=== PATIENT | male | born 1935 | race Caucasian/White ===

== ENCOUNTER 2020-05-01 10:39 | Inpatient (IN) | payer MEDICARE, OTHER ==
--- NOTE | 2020-05-01 12:00 | ER Document Report ---
ED Medical Screen (RME) - General Chief Complaint: Fall Injury Stated Complaint: LEG PAIN/FALL Time Seen by Provider: 05/01/20 11:49 Mode of Arrival: Wheelchair Information source: Patient, Relative Notes: Patient is a 84-year-old male comes emergency room brought in by his daughter for a sustained loss of balance and fall on Friday. Daughter states that he was backing up and lost his balance she saw him going to fall and was able to get to his side and was able to catch his head and his upper body prior to him hitting the cement so he did not hit his head or have loss of consciousness but when he landed he landed on his right elbow very hard in his right hip hard. Again the daughter denies any loss of consciousness he did not have any fainting spells because it was was a mechanical fall. Patient has a significant past medical history pertinent for the history of blood clots and currently taking Eliquis, she has a history of COPD, hypertension, arrhythmias. Patient is sched uled to see Dr. Quiles on May 16 as a new patient. He had just moved down here a couple weeks ago from [place]. There is a question of baseline dementia as well. Physical examination: Patient is a frail-appearing 84-year-old male no apparent distress on examination today. Cardiac: Regular rate and rhythm with no murmurs auscultated. Lungs: Bilateral breath sounds decreased throughout no rhonchi or rales heard on auscultation. Abdomen: Bowel sounds present all 4 quads nontender to palpate. Lower extremities: Examination of patient's area of complaint is his right hip upper thigh pelvic area. Examination shows mild tenderness to palpation in the sitting position in his wheelchair anteriorly in the groin area patient unable to lift his leg against gravity at all. Any motion with passive range of motion causes increased discomfort and pain. There does not appear to be any shortening of the leg in the sitting position or rotation of it compared to the left side. Patient has a good femoral pulse. Unable to undress patient to see if there is any ecchymosis or swelling noted at this time he will be seen by provider in the back for further evaluation. I have greeted and performed a rapid initial assessment of this patient. A comprehensive ED assessment and evaluation of the patient, analysis of test results and completion of the medical decision making process will be conducted by additional ED providers. Dictation of this chart was performed using voice recognition software; therefore, there may be some unintended grammatical errors. Also note patient is on Eliquis and I do not feel it necessary at this time to do a head CT since daughter is with him and states that he has no head trauma and she caught him on his way down. - Related Data Allergies/Adverse Reactions: No Known Allergies Allergy (Unverified 05/01/20 11:45) Physical Exam - Vital signs Vitals: Temp Pulse Resp BP Pulse Ox 98.7 F 74 16 129/69 H 100 05/01/20 10:46 05/01/20 10:46 05/01/20 10:46 05/01/20 10:46 05/01/20 10:46 Course - Vital Signs Vital signs: Temp Pulse Resp BP Pulse Ox 98.7 F 74 16 129/69 H 100 05/01/20 10:46 05/01/20 10:46 05/01/20 10:46 05/01/20 10:46 05/01/20 10:46
[2020-05-01 12:32] LABS: ABSOLUTE LYMPHOCYTES (AUTO) 0.6 10^3/uL (0.5-4.7); ABSOLUTE MONOCYTES (AUTO) 0.7 10^3/uL (0.1-1.4); ABSOLUTE NEUT (AUTO) 8.6 10^3/uL (1.7-8.2); BASOPHILS % (AUTO) 0.3 % (0-2); EOSINOPHILS % (AUTO) 0.1 % (0-6); HEMATOCRIT 42.6 % (37.9-51.0); HEMOGLOBIN 14.4 g/dL (13.5-17.0); MEAN CORPUSCULAR HEMOGLOBIN 30.9 pg (27.0-33.4); MEAN CORPUSCULAR HGB CONC 33.9 g/dL (32.0-36.0); MEAN CORPUSCULAR VOLUME 91 fl (80-97); MONOCYTES % (AUTO) 6.8 % (3-13); PLATELET COUNT 136 10^3/uL (150-450); RED BLOOD COUNT 4.68 10^6/uL (4.35-5.55); RED CELL DISTRIBUTION WIDTH 15.9 % (11.5-14.0); SEGMENTED NEUTROPHILS % (AUTO) 86.8 % (42-78); TOTAL CELLS COUNTED % (AUTO) 100 %; WHITE BLOOD COUNT 9.9 10^3/uL (4.0-10.5)
[2020-05-01 12:47] LABS: ALBUMIN 3.5 g/dL (3.5-5.0); ALKALINE PHOSPHATASE 104 U/L (38-126); ANION GAP 11 (5-19); ASPARTATE AMINO TRANSFERASE 127 U/L (17-59); BILIRUBIN,DIRECT 0.3 mg/dL (0.0-0.4); BILIRUBIN,TOTAL 1.2 mg/dL (0.2-1.3); BLOOD UREA NITROGEN 43 mg/dL (7-20); CALCIUM 8.5 mg/dL (8.4-10.2); CARBON DIOXIDE 22 mmol/L (22-30); CHLORIDE 102 mmol/L (98-107); GLUCOSE 150 mg/dL (75-110); POTASSIUM 4.7 mmol/L (3.6-5.0); TOTAL PROTEIN 7.1 g/dL (6.3-8.2)
--- NOTE | 2020-05-01 12:55 | RADIOLOGY REPORT (SQ) ---
EXAM DESCRIPTION: ELBOW RIGHT OVER 2 VIEWS IMAGES COMPLETED DATE/TIME: 05/01/2020 12:46 pm REASON FOR STUDY: fall COMPARISON: None. NUMBER OF VIEWS: Four views. TECHNIQUE: AP, lateral, and both oblique radiographic images acquired of the right elbow. LIMITATIONS: None. FINDINGS: MINERALIZATION: Normal. BONES: No acute fracture or dislocation. Prominent spur on the olecranon. Small osteophytes on the radial head and capitellum. No worrisome bone lesions. JOINT: No effusion. SOFT TISSUES: No soft tissue swelling. No foreign body. OTHER: No other significant finding. IMPRESSION: CHRONIC DEGENERATIVE CHANGES. NO RADIOGRAPHIC EVIDENCE OF ACUTE INJURY. TECHNICAL DOCUMENTATION: JOB ID: [id number] 2010 [employer]- All Rights Reserved Reading location - IP/workstation name: [email or web address]
--- NOTE | 2020-05-01 12:56 | RADIOLOGY REPORT (SQ) ---
EXAM DESCRIPTION: FEMUR RIGHT IMAGES COMPLETED DATE/TIME: 05/01/2020 12:46 pm REASON FOR STUDY: fall COMPARISON: None. NUMBER OF VIEWS: Two views. TECHNIQUE: Two radiographic images acquired of the right femur to include hip and knee in at least o ne projection. LIMITATIONS: None. FINDINGS: MINERALIZATION: Normal. BONES: No acute fracture. No worrisome bone lesions. Degenerative changes in the hip. SOFT TISSUES: No obvious swelling or foreign body. Faint chondrocalcinosis in the knee. OTHER: No other significant finding. IMPRESSION: CHRONIC DEGENERATIVE CHANGES. NO RADIOGRAPHIC EVIDENCE OF ACUTE INJURY. TECHNICAL DOCUMENTATION: JOB ID: [id number] 2010 [employer]- All Rights Reserved Reading location - IP/workstation name: [email or web address]
--- NOTE | 2020-05-01 12:57 | RADIOLOGY REPORT (SQ) ---
EXAM DESCRIPTION: HIP BILATERAL IMAGES COMPLETED DATE/TIME: 05/01/2020 12:46 pm REASON FOR STUDY: fall COMPARISON: None. NUMBER OF VIEWS: Two views TECHNIQUE: AP pelvis and additional frog-leg view of both hips. LIMITATIONS: None. FINDINGS: MINERALIZATION: Normal. HIPS: No acute fracture or dislocation. Mild joint space narrowing with small osteophytes. No worri some bone lesions. PELVIS AND SACRUM: No acute fracture or dislocation. No worrisome bone lesions. PUBIS AND ISCHIUM: No acute fracture. LOWER LUMBAR SPINE: No significant findings as visualized. SOFT TISSUES: No findings. OTHER: Bowel gas pattern overlying both hips, possibly due to inguinal hernias. IMPRESSION: MILD DEGENERATIVE CHANGES IN THE HIPS. NO ACUTE TRAUMATIC FINDINGS. POSSIBLE INGUINAL HERNIAS. TECHNICAL DOCUMENTATION: JOB ID: [id number] 2010 [email or web address]- All Rights Reserved Reading location - IP/workstation name: [email or web address]
--- NOTE | 2020-05-01 12:58 | RADIOLOGY REPORT (SQ) ---
EXAM DESCRIPTION: L SPINE WHOLE IMAGES COMPLETED DATE/TIME: 05/01/2020 12:46 pm REASON FOR STUDY: fall COMPARISON: None. NUMBER OF VIEWS: Five views including obliques. TECHNIQUE: AP, lateral, oblique, and sacral radiographic images acquired of the lumbar spine. LIMITATIONS: None. FINDINGS: MINERALIZATION: Normal. SEGMENTATION: Normal. No transitional anatomy. ALIGNMENT: Normal. VERTEBRAE: Maintained height. No fracture or worrisome bone lesion. DISCS: Disc space narrowing with small osteophytes. POSTERIOR ELEMENTS: Pedicles and facets are intact. No pars defect or posterior arch defects. HARDWARE: None in the spine. PARASPINAL SOFT TISSUES: Normal. PELVIS: Intact as visualized. No fractures or worrisome bone lesions. SI joints intact. OTHER: No other significant finding. IMPRESSION: DEGENERATIVE DISC DISEASE. NO ACUTE FINDINGS. TECHNICAL DOCUMENTATION: JOB ID: [id number] 2010 [employer]- All Rights Reserved Reading location - IP/workstation name: [email or web address]
[2020-05-01 16:30] LABS: APPEARANCE,URINE SLIGHTLY-CLOUDY; BILIRUBIN,URINE NEGATIVE (NEGATIVE); COLOR,URINE YELLOW; GLUCOSE, URINE NEGATIVE (NEGATIVE); KETONES,URINE NEGATIVE (NEGATIVE); LEUKOCYTE ESTERASE,URINE NEGATIVE (NEGATIVE); NITRITE,URINE NEGATIVE (NEGATIVE); PROTEIN,URINE 30 mg/dL (NEGATIVE)
--- NOTE | 2020-05-01 19:14 | ER Document Report ---
ED General - General Chief Complaint: Fall Injury Stated Complaint: LEG PAIN/FALL Time Seen by Provider: 05/01/20 11:49 Mode of Arrival: Wheelchair - HPI Notes: 84-year-old male presents with right hip pain. Patient had a witnessed fall on Friday evening. Patient's daughter states that he was getting out of a car, he was backing up while walking, lost his balance. Patient's daughter states that she witnessed him look like he was about to fall, so she was able to catch him, however he did land with pretty significant force to his right elbow and hip. No loss of consciousness, he did not hit his head. Patient was ambulatory Friday and Friday, however today complained of increasing pain and was no longer able to ambulate. Patient has recently moved here and he is going to establish with a primary care in May. He has a history of COPD, hypertension, hypothyroidism, arrhythmia. He is on Eliquis. Patient's daughter also states that over the past month or so she has noticed that he seems to sleep more and has had decreased appetite, will intermittently complain of dizziness. Patient states that pain is okay as long as he is laying in bed, will greatly increase if he tries to get up and walk. Patient also notes a history of hernias in his groin which have been there for years. - Related Data Allergies/Adverse Reactions: No Known Allergies Allergy (Unverified 05/01/20 11:45) Past Medical History - General Information source: Patient, Relative - Social History Smoking Status: Former Smoker Family History: Reviewed & Not Pertinent Patient has homicidal ideation: No Review of Systems - Review of Systems Constitutional: denies: Fever EENT: No symptoms reported Cardiovascular: denies: Chest pain Respiratory: denies: Short of breath Gastrointestinal: denies: Abdominal pain Genitourinary: No symptoms reported Male Genitourinary: No symptoms reported Musculoskeletal: See HPI Skin: Other - Bruising Hematologic/Lymphatic: Other - On anticoagulation Neurological/Psychological: denies: Lost consciousness Physical Exam - Vital signs Vitals: Temp Pulse Resp BP Pulse Ox 98.7 F 74 16 129/69 H 100 05/01/20 10:46 05/01/20 10:46 05/01/20 10:46 05/01/20 10:46 05/01/20 10:46 - General General appearance: Appears well, Alert In distress: None - HEENT Head: Normocephalic, Atraumatic Extraocular movements intact: Yes Pupils: PERRL Neck: Other - No midline tenderness - Respiratory Chest status: Nontender Breath sounds: Rhonchi - Basis - Cardiovascular Rhythm: Bradycardia Normal capillary refill: Yes - Abdominal Distension: No distension Tenderness: Nontender Notes: 2 large bilateral inguinal hernias, nontender - Back Back: Other - No midline tenderness - Extremities Notes: Tenderness to right anatomical hip, decreased range of motion. Leg lengths grossly symmetric. Ecchymosis to posterior buttocks. Full range of motion to right elbow, no tenderness - Neurological Neuro grossly intact: Yes Cognition: Normal Orientation: AAOx4 Notes: Face is symmetric and speech is clear, motor symmetric between upper extremities, there is some weakness to the right leg which patient reports is due to pain, sensation intact - Psychological Associated symptoms: Normal affect - Skin Skin Temperature: Warm Course - Re-evaluation Re-evalutation: 84-year-old male presents with right hip pain, had a fall from standing 2 days ago, sounds mechanical per daughter and patient's description. No loss consciousness, did not hit his head. Became nonambulatory today secondary to pain. On exam patient is alert and well-appearing, sinus bradycardia, otherwise hemodynamically stable. Abdomen is soft. Does have tenderness to the right anatomical hip with some ecchymosis, leg lengths grossly symmetric. There is some weakness of the right leg which is from pain. Patient is grossly neurologically intact. Imaging done through triage was negative for fracture, however given his age and arthritis, will obtain CT to fully assess. Given the elevation of his LFTs, will do a CT abdomen to rule out liver lack. No reports of head trauma, however given that he is on Eliquis will obtain CT head to rule out bleed, will also see if there is any evidence of a subacute stroke. 05/01/20 22:48 CT has resulted. Patient has nondisplaced fracture of right acetabulum, inferior and superior rami. Discussed with Dr. Arriaga. Will have patient admitted to medicine service for pain control and for therapy to see, orthopedic team will see in the morning 05/01/20 22:[address] Gtz for admission - Vital Signs Vital signs: Temp Pulse Resp BP Pulse Ox 98.0 F 59 L 18 142/83 H 93 05/02/20 01:58 05/02/20 02:18 05/02/20 01:58 05/02/20 01:58 05/02/20 01:58 - Laboratory Results Result Diagrams: 05/01/20 12:09 05/01/20 12:09 Laboratory Results Interpreted: 05/01/20 05/01/20 05/01/20 12:09 12:09 12:09 RDW 15.9 H Plt Count 136 L Lymph % (Auto) 6.0 L Absolute Neuts (auto) 8.6 H Seg Neutrophils % 86.8 H Sodium 134.6 L BUN 43 H Creatinine 1.61 H Est GFR ( Amer) 50 L Est GFR (MDRD) Non-Af 41 L Glucose 150 H AST 127 H ALT 153 H Free T4 3.11 H Urine Protein Urine Urobilinogen 05/01/20 16:04 RDW Plt Count Lymph % (Auto) Absolute Neuts (auto) Seg Neutrophils % Sodium BUN Creatinine Est GFR ( Amer) Est GFR (MDRD) Non-Af Glucose AST ALT Free T4 Urine Protein 30 H Urine Urobilinogen 4.0 H Critical Laboratory Results Reviewed: No Critical Results - Radiology Results Critical Radiology Results Reviewed: No Critical Results - EKG Interpretation by Me Additional EKG results interpreted by me: EKG is interpreted by me. Sinus bradycardia, rate 55. RBBB. QTc within normal limits. No ST segment elevation. Nonspecific ST changes. Discharge - Discharge Clinical Impression: Right acetabular fracture Qualifiers: Encounter type: initial encounter Sublocation of acetabulum: unspecified portion of acetabulum Fracture type: closed Fracture alignment: nondisplaced Qualified Code(s): S32.401A - Unspecified fracture of right acetabulum, initial encounter for closed fracture Fracture of superior pubic ramus Qualifiers: Encounter type: initial encounter Fracture type: closed Laterality: right Qualified Code(s): S32.511A - Fracture of superior rim of right pubis, initial encounter for closed fracture Fracture of inferior pubic ramus Qualifiers: Encounter type: initial encounter Fracture type: closed Laterality: right Qualified Code(s): S32.591A - Other specified fracture of right pubis, initial encounter for closed fracture Disposition: ADMITTED INPATIENT Admitting Provider: Ulisses (Hospitalist) Unit Admitted: Medical Floor
[2020-05-01] MEDS ORDERED: HYDROCODONE/ACETAMINOPHEN 5-325 MG TABLET PO ONE (19:34)
[2020-05-01 20:38] LABS: FREE T4 (FREE THYROXINE) 3.11 ng/dL (0.78-2.19)
[2020-05-01 20:52] LABS: THYROID STIMULATING HORMONE 2.56 uIU/mL (0.47-4.68)
--- NOTE | 2020-05-01 21:57 | RADIOLOGY REPORT (SQ) ---
EXAM DESCRIPTION: CT HEAD WITHOUT IV CONTRAST COMPLETED DATE/TME: 05/01/2020 21:10 CLINICAL HISTORY: 84 years, Male, fall on thinners, R leg weakness COMPARISON: None. TECHNIQUE: Axial images without IV contrast. Sagittal coronal reconstruction. Images stored on PACS. All CT scanners at this facility use dose modulation, iterative reconstruction, and/or weight based dosing when appropriate to reduce radiation dose to as low as reasonably achievable (ALARA). FINDINGS: [id number] central and cortical atrophy. Vascular calcifications. No obvious acute intra-axial abnormalities. Artifact associated with the lower brainstem. There is mild local prominence of the extra-axial space in the left frontal region. Series 2 images 24-26. The finding is low density suggestive. There is questionable subtle skull fracture versus artifact. Seen on one slice Series 3 image 22. There is bilateral frontal sinus mucosal thickening right greater than left. Paranasal sinuses are otherwise unremarkable. Mastoid air cells are unremarkable. IMPRESSION: 1. No obvious acute intra-axial abnormalities. 2. Bilateral frontal sinus disease. 3. Very subtle left frontal extra-axial focal fluid and very questionable, seen on only one slice left frontal bone fracture. Both findings may be artifact. Recommend short term follow-up in several hours or as clinically indicated.
--- NOTE | 2020-05-01 22:15 | RADIOLOGY REPORT (SQ) ---
EXAM DESCRIPTION: CT ABDOMEN PELVIS WITH IV CONTRAST COMPLETED DATE/TME: 05/01/2020 21:11 CLINICAL HISTORY: 84 years, Male, fall, eval for liver lac and R hip fracture COMPARISON: Bilateral hip series from today. TECHNIQUE: 93 mCi of Omnipaque 350. Sagittal coronal reconstruction. Images stored on PACS. All CT scanners at this facility use dose modulation, iterative reconstruction, and/or weight based dosing when appropriate to reduce radiation dose to as low as reasonably achievable (ALARA). FINDINGS: [id number] cardiomegaly mainly dilatation of the right and left atria. Nonspecific nodular opacities in the lung bases acute versus chronic. Motion artifact. Viral pneumonia is not excluded. Liver, spleen, pancreas, biliary system, adrenal glands, and aortic regions are unremarkable. Kidneys without acute findings. Single renal cyst age side. Moderate atherosclerotic aorta without suspicious dilatation narrowing or dissection. Suspected narrowing at the origin of the celiac and superior mesenteric arteries as well as both renal arteries. Stomach contracted. Question mild gastritis in the antrum. Small bowel loops are unremarkable. Dilated colon. No suspicious peritoneal abnormality. Bones are osteoporotic. No suspicious acute fracture dislocation. CT of the pelvis demonstrates diffuse atherosclerotic disease. Greater narrowing of both common femoral arteries more on the right. Large bilateral inguinal hernias. Herniation of sigmoid colon the left. Herniation of small bowel loops in the right. Urinary bladder mildly distended. Significantly coarse prostatic stones. No significant prostatic enlargement. There is a right anterior acetabular fracture with mild extension to the superior pubic ramus. There is a separate right inferior pubic ramus fracture. There is mild hematoma/thickening of the right obturator internus muscle. IMPRESSION: 1. Acute right anterior acetabular fracture with involvement of the right superior and inferior pubic rami. No significant displacement. Mild associated soft tissue thickening. 2. Bilateral inguinal hernia. Herniation of small bowel in the right and sigmoid colon the left. There is colonic dilatation possibly related to the left inguinal hernia. 3. Diffuse atherosclerotic disease. 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 Greater stenosis of both common femoral arteries greater on the right. 4. Cardiomegaly mainly dilatation of the right and left atria. Bibasilar mildly nodular infiltrates greater on the right acute versus chronic. Viral pneumonia not excluded.
[2020-05-01] MEDS ORDERED: RINGERS SOLUTION,LACTATED 500 ML IV ONE (22:58)
[2020-05-01] MEDS ORDERED: ONDANSETRON 4 MG TAB.RAPDIS PO PRN (23:55)
[2020-05-01] MEDS ORDERED: ONDANSETRON HCL INJ/PF 4 MG/2 ML SDV IV PRN (23:55)
[2020-05-01] MEDS ORDERED: PROMETHAZINE HCL INJ 25 MG/1 ML VIAL IV PRN (23:55)
[2020-05-02] MEDS: FAMOTIDINE 20 MG TABLET PO SCH ×3 (00:54→21:42)
[2020-05-02] MEDS: DEXTROSE 5%-1/2 NORMAL SALINE 1,000 ML IV PRN ×2 (00:57→09:37)
[2020-05-02] MEDS: OXYCODONE-ACETAMINOPHEN 5-325 MG TABLET PO PRN ×2 (02:41→19:02)
[2020-05-02] MEDS ORDERED: LABETALOL HCL INJ 20 MG/4 ML DISP.SYRIN IV PRN (03:57)
--- NOTE | 2020-05-02 04:05 | PDOC H&P ---
History of Present Illness Admission Date/PCP: 05/01/20 23:09 CANDIS HER DO History of Present Illness: PAT RICHARD is a 84 year old male Past medical history of atrial fibrillation, hyperlipidemia, hypertension, nonoxygen dependent COPD, who recently moved to [place] from [place]. Patient is brought to ED by EMS after a fall. Patient is accompanied by his daughter who is also the source of history. As per daughter today when patient was trying to get out of the car, he lost his balance and fell to the floor landing on his right hip, before hitting his head to the floor patient's daughter was able to catch him. Patient is stating that before falling down patient felt lightheaded and lost his balance, patient denying any chest pain or palpitation prior to fall, or syncope after a fall. As per family patient has been complaining of dizziness for the last couple of w eeks and also noted to have low appetite. Patient does have history of atrial fibrillation but denies any history of CAD, seizure disorder, CVA, prior falls. Patient is stating that he is keeping hydrated but as per daughter who is present in the room is saying that they have noticed him to have low appetite and been sleeping a lot lately. Patient is complaining of right hip pain, sharp, 5/5 on severity scale, worse with movement, and better with staying still, he denies any fever, shortness of breath, chills, chest pain, palpitation, nausea, vomiting, diarrhea, constipation or any urinary symptoms. In ED a stat head CT was negative for any acute abnormalities, hip and femur x- rays did not show any acute abnormalities but CT abdomen and pelvis confirmed acute right anterior acetabular fracture with involvement of the right superior and inferior pubic rami. Orthopedic surgery was consulted and no acute intervention was recommended at this point and recommendation was for patient to be admitted and will be evaluated by orthopedic surgery tomorrow. Past Medical History Psychiatric Medical History: Denies: Depression Social History Smoking Status: Former Smoker Family History Family History: Reviewed & Not Pertinent Parental Family History Reviewed: Yes Children Family History Reviewed: Yes Sibling(s) Family History Reviewed.: Yes Medication/Allergy Allergies/Adverse Reactions: No Known Allergies Allergy (Unverified 05/01/20 11:45) Review of Systems Review of Systems: as per hpi Physical Exam Vital Signs: Temp Pulse Resp BP Pulse Ox 98.0 F 59 L 18 142/83 H 93 05/02/20 01:58 05/02/20 02:18 05/02/20 01:58 05/02/20 01:58 05/02/20 01:58 Intake & Output 04/30/20 05/01/20 05/02/20 06:59 06:59 06:59 Intake Total 620 Balance 620 Weight 67.5 kg General appearance: PRESENT: no acute distress, well-developed, well-nourished Head exam: PRESENT: atraumatic, normocephalic Neck exam: ABSENT: carotid bruit, JVD, lymphadenopathy, thyromegaly Respiratory exam: PRESENT: clear to auscultation maddie. ABSENT: rales, rhonchi, wheezes Cardiovascular exam: PRESENT: irregular rhythm. ABSENT: diastolic murmur, rubs, systolic murmur Pulses: PRESENT: normal femoral pulses, normal dorsalis pedis pul, +2 pedal pulses bilateral GI/Abdominal exam: PRESENT: normal bowel sounds, soft. ABSENT: distended, guarding, mass, organolmegaly, rebound, tenderness Extremities exam: PRESENT: full ROM. ABSENT: calf tenderness, clubbing, pedal edema Musculoskeletal exam: PRESENT: full ROM - Right hip range of motion limited by pain. Right lower extremity neurovascularly intact., tenderness - Right hip, Neurological exam: PRESENT: alert, awake, oriented to person, oriented to place, oriented to time, oriented to situation, CN II-XII grossly intact. ABSENT: motor sensory deficit Results Laboratory Results: 05/01/20 12:09 05/01/20 12:09 05/01/20 05/01/20 05/01/20 12:09 12:09 12:09 WBC 9.9 RBC 4.68 Hgb 14.4 Hct 42.6 MCV 91 MCH 30.9 MCHC 33.9 RDW 15.9 H Plt Count 136 L Seg Neutrophils % 86.8 H Sodium 134.6 L Potassium 4.7 Chloride 102 Carbon Dioxide 22 Anion Gap 11 BUN 43 H Creatinine 1.61 H Est GFR ( Amer) 50 L Glucose 150 H Calcium 8.5 Total Bilirubin 1.2 AST 127 H Alkaline Phosphatase 104 Total Protein 7.1 Albumin 3.5 TSH 2.56 Free T4 3.11 H Urine Color Urine Appearance Urine pH Ur Specific [place] Urine Protein Urine Glucose (UA) Urine Ketones Urine Blood Urine Nitrite Ur Leukocyte Esterase Urine WBC (Auto) Urine RBC (Auto) 05/01/20 16:04 WBC RBC Hgb Hct MCV MCH MCHC RDW Plt Count Seg Neutrophils % Sodium Potassium Chloride Carbon Dioxide Anion Gap BUN Creatinine Est GFR ( Amer) Glucose Calcium Total Bilirubin AST Alkaline Phosphatase Total Protein Albumin TSH Free T4 Urine Color YELLOW Urine Appearance SLIGHTLY-CLOUDY Urine pH 5.0 Ur Specific [place] 1.020 Urine Protein 30 H Urine Glucose (UA) NEGATIVE Urine Ketones NEGATIVE Urine Blood NEGATIVE Urine Nitrite NEGATIVE Ur Leukocyte Esterase NEGATIVE Urine WBC (Auto) 3 Urine RBC (Auto) 1 Impressions: Elbow X-Ray 05/01/20 11:53 IMPRESSION: CHRONIC DEGENERATIVE CHANGES. NO RADIOGRAPHIC EVIDENCE OF ACUTE INJURY. Hip X-Ray 05/01/20 11:53 IMPRESSION: MILD DEGENERATIVE CHANGES IN THE HIPS. NO ACUTE TRAUMATIC FINDINGS. POSSIBLE INGUINAL HERNIAS. Femur X-Ray 05/01/20 11:54 IMPRESSION: CHRONIC DEGENERATIVE CHANGES. NO RADIOGRAPHIC EVIDENCE OF ACUTE INJURY. Lumbar Spine X-Ray 05/01/20 11:54 IMPRESSION: DEGENERATIVE DISC DISEASE. NO ACUTE FINDINGS. Head CT 05/01/20 19:32 IMPRESSION: 1. No obvious acute intra-axial abnormalities. 2. Bilateral frontal sinus disease. 3. Very subtle left frontal extra-axial focal fluid and very questionable, seen on only one slice left frontal bone fracture. Both findings may be artifact. Recommend short term follow-up in several hours or as clinically indicated. Abdomen/Pelvis CT 05/01/20 19:33 IMPRESSION: 1. Acute right anterior acetabular fracture with involvement of the right superior and inferior pubic rami. No significant displacement. Mild associated soft tissue thickening. 2. Bilateral inguinal hernia. Herniation of small bowel in the right and sigmoid colon the left. There is colonic dilatation possibly related to the left inguinal hernia. 3. Diffuse atherosclerotic disease. 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 Greater stenosis of both common femoral arteries greater on the right. 4. Cardiomegaly mainly dilatation of the right and left atria. Bibasilar mildly nodular infiltrates greater on the right acute versus chronic. Viral pneumonia not excluded. Assessment and Plan - Diagnosis (1) Hip fracture, right Qualifiers: Encounter type: initial encounter Is this a current diagnosis for this admission?: Yes Plan: Nondisplaced fracture of right acetabulum, inferior and superior rami. Right lower extremity neurovascularly intact. Physical examination is limited due to pain. Orthopedic surgery has been consulted, no acute intervention indicated, pending evaluation. Continue supportive measures, implement fall precautions. Orthopedic surgery and physical therapy consulted. (2) Atrial fibrillation Qualifiers: Atrial fibrillation type: permanent Qualified Code(s): I48.21 - Permanent atrial fibrillation Is this a current diagnosis for this admission?: Yes Plan: History of chronic persistent atrial fibrillation,. Rate controlled and anticoagulated. Resume amiodarone and beta-blockers. Hold Eliquis in anticipation for possible orthopedic surgery. As per family patient's dosage was decreased from 5 mg p.o. twice daily to 2.5 mg p.o. twice daily but they could not provide a reason why. Given history of dizziness and recent fall chronic anticoagulation needs to be addressed with patient and family and cardiology. (3) Dizziness Is this a current diagnosis for this admission?: Yes Plan: CT head negative for any acute abnormalities. No orthostatic vitals on presentation. Patient and family is stating for the last several weeks patient is complaining of dizziness. Patient is stating that he gets lightheaded when he tries to stand up from a sitting position. Given recent NITZA and report of anorexia it is possible that patient is simply dehydrated. Patient is also on antihypertensive medication which may also lower his pressure even more. Patient and family counseled on importance of keeping hydrated and patient was advised to not get up too abruptly from a sitting position. Monitor vitals, monitor volume status, adjust antihypertensive medications if needed. Implement fall precautions. Physical therapy consulted. (4) NITZA (acute kidney injury) Is this a current diagnosis for this admission?: Yes Plan: Most likely prerenal due to dehydration. Creatinine 1.61 on admission. No previous labs available. Patient and family denies any history of CKD. Cautious volume resuscitation guided by volume status. Monitor electrolytes and volume status. Obtain renal ultrasound and consult nephrology if no improvement. Avoid nephrotoxic meds. (5) BPH (benign prostatic hyperplasia) Qualifiers: Lower urinary tract symptom presence: symptoms absent Qualified Code(s): N40.0 - Benign prostatic hyperplasia without lower urinary tract symptoms Is this a current diagnosis for this admission?: Yes Plan: Resume home meds. Outpatient PCP and urology follow-up. (6) Hyperlipemia Is this a current diagnosis for this admission?: Yes Plan: Resume home meds. Obtain lipid panel. (7) Hypertension Is this a current diagnosis for this admission?: Yes Plan: Resume home meds. Adjust meds as needed. (8) COPD (chronic obstructive pulmonary disease) Qualifiers: COPD type: emphysema Emphysema type: centrilobular Qualified Code(s): J43.2 - Centrilobular emphysema Is this a current diagnosis for this admission?: Yes Plan: History of nonoxygen COPD. Noted to be hypoxic on room air. Benign chest examination. Does not appear to be acutely exacerbated. Resume home meds. As needed DuoNebs. Supplemental oxygen. Evaluate for home oxygen need. (9) Fall Qualifiers: Encounter type: initial encounter Qualified Code(s): W19.XXXA - Unspecified fall, initial encounter Is this a current diagnosis for this admission?: Yes Plan: As per problem #1. - Time Time Spent with patient: 35 or more minutes Anticipated Discharge Disposition: Home with Home Health Anticipated Discharge Timeframe: within 72 hours
[2020-05-02] MEDS: HEPARIN SOD (PORCINE) 5,000 UNIT/ML 1 ML VIAL SUBCUT SCH ×2 (05:24→17:05)
--- NOTE | 2020-05-02 08:41 | PDOC CONSULTATION ---
Consultation Consult Date: 05/02/20 Provider Consulted: EDELMIRA BLACKWELL History of Present Illness Admission Date/PCP: 05/01/20 23:09 CANDIS HER DO Patient complains of: Right hip pain History of Present Illness: PAT RICHARD is a 84 year old male who sustained a fall from a standing height onto his right hip 04/29/2020. After which patient was unable to weight-bear and was transferred with a wheelchair. He has subsequently presented to the emergency room on 05/01/2020 with persistent pain and inability to weight-bear. Patient states pain is worse with any attempted motion. Desc ribes as sharp stabbing pain. Denies numbness. Pain currently controlled with narcotics. Pain 2/5. Past Medical History Psychiatric Medical History: Denies: Depression Social History Smoking Status: Former Smoker Family History Family History: Reviewed & Not Pertinent Parental Family History Reviewed: No Children Family History Reviewed: No Sibling(s) Family History Reviewed.: No Medication/Allergy Allergies/Adverse Reactions: No Known Allergies Allergy (Unverified 05/01/20 11:45) Physical Exam Vital Signs: Temp Pulse Resp BP Pulse Ox 98.0 F 53 L 18 142/83 H 93 05/02/20 01:58 05/02/20 07:00 05/02/20 01:58 05/02/20 01:58 05/02/20 01:58 Intake & Output 05/01/20 05/02/20 05/03/20 06:59 06:59 06:59 Intake Total 620 Output Total 600 Balance 20 Weight 67.5 kg General appearance: PRESENT: no acute distress, well-developed, well-nourished Head exam: PRESENT: atraumatic, normocephalic Eye exam: PRESENT: conjunctiva pink, EOMI, PERRLA. ABSENT: scleral icterus Ear exam: PRESENT: normal external ear exam Mouth exam: PRESENT: moist, tongue midline Neck exam: PRESENT: full ROM. ABSENT: carotid bruit, JVD, lymphadenopathy, thyromegaly Respiratory exam: PRESENT: wheezes Cardiovascular exam: PRESENT: RRR. ABSENT: diastolic murmur, rubs, systolic murmur Pulses: PRESENT: normal dorsalis pedis pul, +2 pedal pulses bilateral Vascular exam: PRESENT: normal capillary refill GI/Abdominal exam: PRESENT: normal bowel sounds, soft. ABSENT: distended, guarding, mass, organolmegaly, rebound, tenderness Rectal exam: PRESENT: deferred Musculoskeletal exam: PRESENT: other - Right hip: Positive logroll. Unable to straight leg raise moderate thigh swelling without change, intact plantarflexion/dorsiflexion. No sensory deficits. No calf tenderness. Neurological exam: PRESENT: alert, awake, oriented to person, oriented to place, oriented to time, oriented to situation, CN II-XII grossly intact. ABSENT: motor sensory deficit Psychiatric exam: PRESENT: appropriate affect, normal mood. ABSENT: homicidal ideation, suicidal ideation Skin exam: PRESENT: dry, intact, warm. ABSENT: cyanosis, rash Results Laboratory Results: 05/01/20 12:05/01/20 12:05/01/20 05/01/20 05/01/20 12: 12: 12:09 WBC 9.9 RBC 4.68 Hgb 14.4 Hct 42.6 MCV 91 MCH 30.9 MCHC 33.9 RDW 15.9 H Plt Count 136 L Seg Neutrophils % 86.8 H Sodium 134.6 L Potassium 4.7 Chloride 102 Carbon Dioxide 22 Anion Gap 11 BUN 43 H Creatinine 1.61 H Est GFR ( Amer) 50 L Glucose 150 H Calcium 8.5 Total Bilirubin 1.2 AST 127 H Alkaline Phosphatase 104 Total Protein 7.1 Albumin 3.5 TSH 2.56 Free T4 3.11 H Urine Color Urine Appearance Urine pH Ur Specific [place] Urine Protein Urine Glucose (UA) Urine Ketones Urine Blood Urine Nitrite Ur Leukocyte Esterase Urine WBC (Auto) Urine RBC (Auto) 05/01/20 16:04 WBC RBC Hgb Hct MCV MCH MCHC RDW Plt Count Seg Neutrophils % Sodium Potassium Chloride Carbon Dioxide Anion Gap BUN Creatinine Est GFR ( Amer) Glucose Calcium Total Bilirubin AST Alkaline Phosphatase Total Protein Albumin TSH Free T4 Urine Color YELLOW Urine Appearance SLIGHTLY-CLOUDY Urine pH 5.0 Ur Specific [place] 1.020 Urine Protein 30 H Urine Glucose (UA) NEGATIVE Urine Ketones NEGATIVE Urine Blood NEGATIVE Urine Nitrite NEGATIVE Ur Leukocyte Esterase NEGATIVE Urine WBC (Auto) 3 Urine RBC (Auto) 1 Impressions: Elbow X-Ray 05/01/20 11:53 IMPRESSION: CHRONIC DEGENERATIVE CHANGES. NO RADIOGRAPHIC EVIDENCE OF ACUTE IN JURY. Hip X-Ray 05/01/20 11:53 IMPRESSION: MILD DEGENERATIVE CHANGES IN THE HIPS. NO ACUTE TRAUMATIC FINDINGS. POSSIBLE INGUINAL HERNIAS. Femur X-Ray 05/01/20 11:54 IMPRESSION: CHRONIC DEGENERATIVE CHANGES. NO RADIOGRAPHIC EVIDENCE OF ACUTE INJURY. Lumbar Spine X-Ray 05/01/20 11:54 IMPRESSION: DEGENERATIVE DISC DISEASE. NO ACUTE FINDINGS. Head CT 05/01/20 19:32 IMPRESSION: 1. No obvious acute intra-axial abnormalities. 2. Bilateral frontal sinus disease. 3. Very subtle left frontal extra-axial focal fluid and very questionable, seen on only one slice left frontal bone fracture. Both findings may be artifact. Recommend short term follow-up in several hours or as clinically indicated. Abdomen/Pelvis CT 05/01/20 19:33 IMPRESSION: 1. Acute right anterior acetabular fracture with involvement of the right superior and inferior pubic rami. No significant displacement. Mild associated soft tissue thickening. 2. Bilateral inguinal hernia. Herniation of small bowel in the right and sigmoid colon the left. There is colonic dilatation possibly related to the left inguinal hernia. 3. Diffuse atherosclerotic disease. 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 Greater stenosis of both common femoral arteries greater on the right. 4. Cardiomegaly mainly dilatation of the right and left atria. Bibasilar mildly nodular infiltrates greater on the right acute versus chronic. Viral pneumonia not excluded. Status: Image reviewed by me - I have reviewed patient's CT scan and radiographs consistent with nondisplaced superior dome acetabular fracture no evidence of intra-articular incongruity. Assessment & Plan - Diagnosis (1) Fracture of inferior pubic ramus Qualifiers: Encounter type: initial encounter Fracture type: closed Laterality: right Qualified Code(s): S32.591A - Other specified fracture of right pubis, initial encounter for closed fracture Plan: Patient sustained nondisplaced acetabular fracture with involvement of the inferior pubic rami. Currently there is no evidence of displacement and given patient's comorbidities he would not be a great candidate for surgery but at this point given the nondisplaced nature do not feel operative intervention is warranted as long as it maintains nondisplacement. Patient will be seen by physical therapy will be nonweightbearing the right lower extremity. May follow-up as an outpatient.
[2020-05-02] MEDS: DOCUSATE SODIUM 100 MG CAPSULE PO SCH (09:37)
--- NOTE | 2020-05-02 15:16 | PDOC PROGRESS REPORT ---
Subjective Date:: 05/02/20 Subjective:: 84 year old male Past medical history of atrial fibrillation, hyperlipidemia, hy pertension, nonoxygen dependent COPD, who recently moved to [place] from [place]. Patient is brought to ED by EMS after a fall. Patient is accompanied by his daughter who is also the source of history. As per daughter today when patient was trying to get out of the car, he lost his balance and fell to the floor landing on his right hip, before hitting his head to the floor patient's daughter was able to catch him. Patient is stating that before falling down patient felt lightheaded and lost his balance, patient denying any chest pain or palpitation prior to fall, or syncope after a fall. As per family patient has been complaining of dizziness for the last couple of weeks and also noted to have low appetite. Patient does have history of atrial fibrillation but denies any history of CAD, seizure disorder, CVA, prior falls. Patient is stating that he is keeping hydrated but as per daughter who is present in the room is saying that they have noticed him to have low appetite and been sleeping a lot lately. Patient is complaining of right hip pain, sharp, 5/5 on severity scale, worse with movement, and better with staying still, he denies any fever, shortness of breath, chills, chest pain, palpitation, nausea, vomiting, diarrhea, constipation or any urinary symptoms. In ED a stat head CT was negative for any acute abnormalities, hip and femur x- rays did not show any acute abnormalities but CT abdomen and pelvis confirmed acute right anterior acetabular fracture with involvement of the right superior and inferior pubic rami. Orthopedic surgery was consulted and no acute intervention was recommended at this point and recommendation was for patient to be admitted and will be evaluated by orthopedic surgery tomorrow. [id number]-old male admitted with fall. He has history of atrial fibrillation, hypertension, COPD. Hip x-rays indicate 12 acetabular fracture. Consultation with Dr. mosquera was done, his recommendation is physical therapy. Patient's son is bedside and he is looking around the town for a good alf facility. Patient is receiving IV pain medications requesting for increased frequency and higher doses at this time. Reason For Visit: FALL, HIP FRACTURE Physical Exam Vital Signs: Temp Pulse Resp BP Pulse Ox 98.5 F 55 L 19 121/64 91 L 05/02/20 13:21 05/02/20 13:21 05/02/20 13:21 05/02/20 13:21 05/02/20 13:21 Intake & Output 05/01/20 05/02/20 05/03/20 06:59 06:59 06:59 Intake Total 620 1120 Output Total 600 Balance 20 1120 Weight 67.5 kg General appearance: PRESENT: no acute distress, obese Eye exam: PRESENT: PERRLA Ear exam: PRESENT: normal external ear exam Mouth exam: PRESENT: neck supple Teeth exam: PRESENT: poor dentation Neck exam: ABSENT: carotid bruit, JVD, lymphadenopathy, thyromegaly Respiratory exam: PRESENT: decreased breath sounds Cardiovascular exam: PRESENT: RRR. ABSENT: diastolic murmur, rubs, systolic murmur GI/Abdominal exam: PRESENT: normal bowel sounds, soft. ABSENT: distended, guarding, mass, organolmegaly, rebound, tenderness Rectal exam: PRESENT: deferred Extremities exam: PRESENT: full ROM. ABSENT: calf tenderness, clubbing, pedal edema Neurological exam: PRESENT: alert, awake, oriented to person, oriented to place, oriented to time, oriented to situation, CN II-XII grossly intact. ABSENT: motor sensory deficit Psychiatric exam: PRESENT: appropriate affect, normal mood. ABSENT: homicidal ideation, suicidal ideation Skin exam: PRESENT: dry, intact, warm. ABSENT: cyanosis, rash Results Laboratory Results: 05/01/20 12:09 05/01/20 12:09 05/01/20 05/01/20 12:09 16:04 TSH 2.56 Free T4 3.11 H Urine Color YELLOW Urine Appearance SLIGHTLY-CLOUDY Urine pH 5.0 Ur Specific [place] 1.020 Urine Protein 30 H Urine Glucose (UA) NEGATIVE Urine Ketones NEGATIVE Urine Blood NEGATIVE Urine Nitrite NEGATIVE Ur Leukocyte Esterase NEGATIVE Urine WBC (Auto) 3 Urine RBC (Auto) 1 Impressions: Elbow X-Ray 05/01/20 11:53 IMPRESSION: CHRONIC DEGENERATIVE CHANGES. NO RADIOGRAPHIC EVIDENCE OF ACUTE INJURY. Hip X-Ray 05/01/20 11:53 IMPRESSION: MILD DEGENERATIVE CHANGES IN THE HIPS. NO ACUTE TRAUMATIC FINDINGS. POSSIBLE INGUINAL HERNIAS. Femur X-Ray 05/01/20 11:54 IMPRESSION: CHRONIC DEGENERATIVE CHANGES. NO RADIOGRAPHIC EVIDENCE OF ACUTE INJURY. Lumbar Spine X-Ray 05/01/20 11:54 IMPRESSION: DEGENERATIVE DISC DISEASE. NO ACUTE FINDINGS. Head CT 05/01/20 19:32 IMPRESSION: 1. No obvious acute intra-axial abnormalities. 2. Bilateral frontal sinus disease. 3. Very subtle left frontal extra-axial focal fluid and very questionable, seen on only one slice left frontal bone fracture. Both findings may be artifact. Recommend short term follow-up in several hours or as clinically indicated. Abdomen/Pelvis CT 05/01/20 19:33 IMPRESSION: 1. Acute right anterior acetabular fracture with involvement of the right superior and inferior pubic rami. No significant displacement. Mild associated soft tissue thickening. 2. Bilateral inguinal hernia. Herniation of small bowel in the right and sigmoid colon the left. There is colonic dilatation possibly related to the left inguinal hernia. 3. Diffuse atherosclerotic disease. 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 Greater stenosis of both common femoral arteries greater on the right. 4. Cardiomegaly mainly dilatation of the right and left atria. Bibasilar mildly nodular infiltrates greater on the right acute versus chronic. Viral pneumonia not excluded. Assessment and Plan - Diagnosis (1) Hip fracture, right Qualifiers: Encounter type: initial encounter Is this a current diagnosis for this admission?: Yes Plan: Nondisplaced fracture of right acetabulum, inferior and superior rami. Right lower extremity neurovascularly intact. Physical examination is limited due to pain. Orthopedic surgery has been consulted, no acute intervention indicated, pending evaluation. Continue supportive measures, implement fall precautions. Orthopedic surgery and physical therapy consulted. 05/02/2020-patient admitted with right acetabular fracture in association with fractures of the inferior and superior rami. Consultation with orthopedic team was done recommendation is conservative management and physical therapy with possible rehab placement. Physical therapy was done recommendation is rehab placement. (2) Atrial fibrillation Qualifiers: Atrial fibrillation type: permanent Qualified Code(s): I48.21 - Permanent atrial fibrillation Is this a current diagnosis for this admission?: No Plan: History of chronic persistent atrial fibrillation,. Rate controlled and anticoagulated. Resume amiodarone and beta-blockers. Hold Eliquis in anticipation for possible orthopedic surgery. As per family patient's dosage was decreased from 5 mg p.o. twice daily to 2.5 mg p.o. twice daily but they could not provide a reason why. Given history of dizziness and recent fall chronic anticoagulation needs to be addressed with patient and family and cardiology. 05/02/20-patient has history of chronic atrial fibrillation on Eliquis. He is also on amiodarone. To continue Eliquis and amiodarone at this time. (3) NITZA (acute kidney injury) Is this a current diagnosis for this admission?: Yes Plan: Most likely prerenal due to dehydration. Creatinine 1.61 on admission. No previous labs available. Patient and family denies any history of CKD. Cautious volume resuscitation guided by volume status. Monitor electrolytes and volume status. Obtain renal ultrasound and consult nephrology if no improvement. Avoid nephrotoxic meds. 05/02/2020-admission serum creatinine 6.1.. do not Have the previous labs available. To do the follow-up labs tomorrow. - Time Anticipated Discharge Disposition: Care Home Facility Anticipated Discharge Timeframe: within 72 hours
[2020-05-02] MEDS: IPRATROPIUM/ALBUTEROL 0.5-2.5 MG/3 ML AMPUL NEB PRN (16:24)
[2020-05-02] MEDS: APIXABAN 2.5 MG TABLET PO SCH (17:22)
[2020-05-02] MEDS: ATORVASTATIN CALCIUM 20 MG TABLET PO SCH (21:42)
[2020-05-03] MEDS: IPRATROPIUM/ALBUTEROL 0.5-2.5 MG/3 ML AMPUL NEB PRN ×2 (01:58→11:49)
[2020-05-03] MEDS: LEVOTHYROXINE SODIUM 0.112 MG TABLET PO SCH (06:04)
[2020-05-03 07:21] LABS: ABSOLUTE LYMPHOCYTES (AUTO) 0.8 10^3/uL (0.5-4.7); ABSOLUTE MONOCYTES (AUTO) 0.6 10^3/uL (0.1-1.4); ABSOLUTE NEUT (AUTO) 10.8 10^3/uL (1.7-8.2); BASOPHILS % (AUTO) 0.3 % (0-2); EOSINOPHILS % (AUTO) 0.3 % (0-6); HEMATOCRIT 36.5 % (37.9-51.0); HEMOGLOBIN 12.5 g/dL (13.5-17.0); LYMPHOCYTES % (AUTO) 6.4 % (13-45); MEAN CORPUSCULAR HEMOGLOBIN 30.5 pg (27.0-33.4); MEAN CORPUSCULAR HGB CONC 34.3 g/dL (32.0-36.0); MEAN CORPUSCULAR VOLUME 89 fl (80-97); MONOCYTES % (AUTO) 4.8 % (3-13); PLATELET COUNT 142 10^3/uL (150-450); RED BLOOD COUNT 4.09 10^6/uL (4.35-5.55); RED CELL DISTRIBUTION WIDTH 15.6 % (11.5-14.0); SEGMENTED NEUTROPHILS % (AUTO) 88.2 % (42-78); TOTAL CELLS COUNTED % (AUTO) 100 %; WHITE BLOOD COUNT 12.2 10^3/uL (4.0-10.5)
[2020-05-03 07:43] LABS: ALBUMIN 2.8 g/dL (3.5-5.0); ALKALINE PHOSPHATASE 71 U/L (38-126); ANION GAP 5 (5-19); ASPARTATE AMINO TRANSFERASE 79 U/L (17-59); BILIRUBIN,DIRECT 0.3 mg/dL (0.0-0.4); BILIRUBIN,TOTAL 1.3 mg/dL (0.2-1.3); BLOOD UREA NITROGEN 44 mg/dL (7-20); CALCIUM 7.9 mg/dL (8.4-10.2); CARBON DIOXIDE 26 mmol/L (22-30); CHLORIDE 101 mmol/L (98-107); GLUCOSE 91 mg/dL (75-110); PHOSPHORUS 3.2 mg/dL (2.5-4.5); POTASSIUM 4.8 mmol/L (3.6-5.0); TOTAL PROTEIN 6.1 g/dL (6.3-8.2)
[2020-05-03] MEDS ORDERED: FUROSEMIDE 20 MG TABLET PO SCH (08:00)
[2020-05-03] MEDS: PANTOPRAZOLE SODIUM 40 MG TABLET.DR PO SCH (08:04)
[2020-05-03 08:08] LABS: INTERNATIONAL RATION (INR) 1.09; PROTHROMBIN TIME 14.3 SEC (11.4-15.4)
[2020-05-03] MEDS: OXYCODONE-ACETAMINOPHEN 5-325 MG TABLET PO PRN ×2 (09:02→21:39)
[2020-05-03] MEDS: MAGNESIUM HYDROXIDE SUSP 30 ML UDCUP PO PRN (09:02)
[2020-05-03] MEDS ORDERED: AMIODARONE HCL 200 MG TABLET PO SCH (10:00)
[2020-05-03] MEDS ORDERED: (PENDING PHARMACY ID) (Tiotropium Bromide [Spiriva Handihaler 5 Cap/Kit (18 Mcg/Cap)] 5 CA IH SCH (10:00)
--- NOTE | 2020-05-03 11:02 | RADIOLOGY REPORT (SQ) ---
EXAM DESCRIPTION: CHEST SINGLE VIEW IMAGES COMPLETED DATE/TIME: 05/03/2020 10:52 am REASON FOR STUDY: dyspnea COMPARISON: None. EXAM PARAMETERS: NUMBER OF VIEWS: One view. TECHNIQUE: Single frontal radiographic view of the chest acquired. RADIATION DOSE: NA LIMITATIONS: None. FINDINGS: LUNGS AND PLEURA: Extensive bilateral interstitial airspace disease most marked in the rig ht upper lobe. No effusions. No pneumothorax. MEDIASTINUM AND HILAR STRUCTURES: No masses. Contour normal. HEART AND VASCULAR STRUCTURES: Heart normal in size. Normal vasculature. BONES: No acute findings. HARDWARE: None in the chest. OTHER: No other significant finding. IMPRESSION: Extensive bilateral interstitial airspace disease most marked in the right upper lobe. TECHNICAL DOCUMENTATION: JOB ID: [id number] 2010 [employer]- All Rights Reserved Reading location - IP/workstation name: [email or web address]
[2020-05-03] MEDS ORDERED: PIPERACILLIN/TAZOBACTAM 3.375 GM VIAL IV SCH (11:15)
--- NOTE | 2020-05-03 11:15 | PDOC PROGRESS REPORT ---
Subjective Date:: 05/03/20 Subjective:: 84 year old male Past medical history of atrial fibrillation, hyperlipidemia, hy pertension, nonoxygen dependent COPD, who recently moved to [place] from [place]. Patient is brought to ED by EMS after a fall. Patient is accompanied by his daughter who is also the source of history. As per daughter today when patient was trying to get out of the car, he lost his balance and fell to the floor landing on his right hip, before hitting his head to the floor patient's daughter was able to catch him. Patient is stating that before falling down patient felt lightheaded and lost his balance, patient denying any chest pain or palpitation prior to fall, or syncope after a fall. As per family patient has been complaining of dizziness for the last couple of weeks and also noted to have low appetite. Patient does have history of atrial fibrillation but denies any history of CAD, seizure disorder, CVA, prior falls. Patient is stating that he is keeping hydrated but as per daughter who is present in the room is saying that they have noticed him to have low appetite and been sleeping a lot lately. Patient is complaining of right hip pain, sharp, 5/5 on severity scale, worse with movement, and better with staying still, he denies any fever, shortness of breath, chills, chest pain, palpitation, nausea, vomiting, diarrhea, constipation or any urinary symptoms. In ED a stat head CT was negative for any acute abnormalities, hip and femur x- rays did not show any acute abnormalities but CT abdomen and pelvis confirmed acute right anterior acetabular fracture with involvement of the right superior and inferior pubic rami. Orthopedic surgery was consulted and no acute intervention was recommended at this point and recommendation was for patient to be admitted and will be evaluated by orthopedic surgery tomorrow. 05/[id number]-old male admitted with fall. He has history of atrial fibrillation, hypertension, COPD. Hip x-rays indicate 12 acetabular fracture. Consultation with Dr. mosquera was done, his recommendation is physical therapy. Patient's son is bedside and he is looking around the town for a good alf facility. Patient is receiving IV pain medications requesting for increased frequency and higher doses at this time. 05/03/[id number]-ceem-old male admitted with history of fall. Conservative management is recommended by orthopedic team. This morning he is on 3 L of oxygen and short of breath. Test x-ray was done it indicated with extensive bilateral infiltrates. Started on IV Zosyn. To cancel the discharge at this ti ia. Respiratory panel is requested. Reason For Visit: FALL, HIP FRACTURE Physical Exam Vital Signs: Temp Pulse Resp BP Pulse Ox 97.9 F 51 L 18 135/85 H 87 L 05/02/20 22:00 05/03/20 02:00 05/03/20 01:59 05/02/20 19:39 05/03/20 01:59 Intake & Output 05/02/20 05/03/20 05/04/20 06:59 06:59 06:59 Intake Total 620 2360 Output Total 600 Balance 20 2360 Weight 67.5 kg 69.3 kg General appearance: PRESENT: no acute distress, mild distress, well-developed Head exam: PRESENT: atraumatic Eye exam: PRESENT: PERRLA Ear exam: PRESENT: normal external ear exam Mouth exam: PRESENT: neck supple Teeth exam: PRESENT: poor dentation Neck exam: ABSENT: carotid bruit, JVD, lymphadenopathy, thyromegaly Respiratory exam: PRESENT: decreased breath sounds, rhonchi, wheezes Cardiovascular exam: PRESENT: RRR. ABSENT: diastolic murmur, rubs, systolic mu rmur Pulses: PRESENT: normal dorsalis pedis pul GI/Abdominal exam: PRESENT: normal bowel sounds, soft. ABSENT: distended, guarding, mass, organolmegaly, rebound, tenderness Rectal exam: PRESENT: deferred Extremities exam: PRESENT: full ROM. ABSENT: calf tenderness, clubbing, pedal edema Neurological exam: PRESENT: alert, awake, oriented to person, oriented to place, oriented to time, oriented to situation, CN II-XII grossly intact. ABSENT: motor sensory deficit Psychiatric exam: PRESENT: appropriate affect, normal mood. ABSENT: homicidal ideation, suicidal ideation Results Laboratory Results: 05/03/20 06:12 05/03/20 06:12 05/03/20 05/03/20 06:12 06:12 WBC 12.2 H RBC 4.09 L Hgb 12.5 L Hct 36.5 L MCV 89 MCH 30.5 MCHC 34.3 RDW 15.6 H Plt Count 142 L Seg Neutrophils % 88.2 H Sodium 132.1 L Potassium 4.8 Chloride 101 Carbon Dioxide 26 Anion Gap 5 BUN 44 H Creatinine 1.47 H Est GFR ( Amer) 55 L Glucose 91 Calcium 7.9 L Phosphorus 3.2 Magnesium 2.2 Total Bilirubin 1.3 AST 79 H Alkaline Phosphatase 71 Total Protein 6.1 L Albumin 2.8 L Impressions: Elbow X-Ray 05/01/20 11:53 IMPRESSION: CHRONIC DEGENERATIVE CHANGES. NO RADIOGRAPHIC EVIDENCE OF ACUTE INJURY. Hip X-Ray 05/01/20 11:53 IMPRESSION: MILD DEGENERATIVE CHANGES IN THE HIPS. NO ACUTE TRAUMATIC FINDINGS. POSSIBLE INGUINAL HERNIAS. Femur X-Ray 05/01/20 11:54 IMPRESSION: CHRONIC DEGENERATIVE CHANGES. NO RADIOGRAPHIC EVIDENCE OF ACUTE INJURY. Lumbar Spine X-Ray 05/01/20 11:54 IMPRESSION: DEGENERATIVE DISC DISEASE. NO ACUTE FINDINGS. Head CT 05/01/20 19:32 IMPRESSION: 1. No obvious acute intra-axial abnormalities. 2. Bilateral frontal sinus disease. 3. Very subtle left frontal extra-axial focal fluid and very questionable, seen on only one slice left frontal bone fracture. Both findings may be artifact. Recommend short term follow-up in several hours or as clinically indicated. Abdomen/Pelvis CT 05/01/20 19:33 IMPRESSION: 1. Acute right anterior acetabular fracture with involvement of the right superior and inferior pubic rami. No significant displacement. Mild associated soft tissue thickening. 2. Bilateral inguinal hernia. Herniation of small bowel in the right and sigmoid colon the left. There is colonic dilatation possibly related to the left inguinal hernia. 3. Diffuse atherosclerotic disease. 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 Greater stenosis of both common femoral arteries greater on the right. 4. Cardiomegaly mainly dilatation of the right and left atria. Bibasilar mildly nodular infiltrates greater on the right acute versus chronic. Viral pneumonia not excluded. Chest X-Ray 05/03/20 00:00 IMPRESSION: Extensive bilateral interstitial airspace disease most marked in the right upper lobe. Assessment and Plan - Diagnosis (1) Hip fracture, right Qualifiers: Encounter type: initial encounter Is this a current diagnosis for this admission?: Yes Plan: Nondisplaced fracture of right acetabulum, inferior and superior rami. Right lower extremity neurovascularly intact. Physical examination is limited due to pain. Orthopedic surgery has been consulted, no acute intervention indicated, pending evaluation. Continue supportive measures, implement fall precautions. Orthopedic surgery and physical therapy consulted. 05/02/2020-patient admitted with right acetabular fracture in association with fractures of the inferior and superior rami. Consultation with orthopedic team was done recommendation is conservative management and physical therapy with possible rehab placement. Physical therapy was done recommendation is rehab placement. 05/03/20-patient admitted with a fall found to have acetabular, inferior and superior rami fractures. And conservative management. Physical therapy recommended rehab. (2) Atrial fibrillation Qualifiers: Atrial fibrillation type: permanent Qualified Code(s): I48.21 - Permanent atrial fibrillation Is this a current diagnosis for this admission?: No Plan: History of chronic persistent atrial fibrillation,. Rate controlled and anticoagulated. Resume amiodarone and beta-blockers. Hold Eliquis in anticipation for possible orthopedic surgery. As per family patient's dosage was decreased from 5 mg p.o. twice daily to 2.5 mg p.o. twice daily but they could not provide a reason why. Given history of dizziness and recent fall chronic anticoagulation needs to be addressed with patient and family and cardiology. 05/02/20-patient has history of chronic atrial fibrillation on Eliquis. He is also on amiodarone. To continue Eliquis and amiodarone at this time. 05/03/2020-patient has history of atrial fibrillation. Plan is to continue amiodarone, Eliquis at this time. Heart rate is in the fifties (3) NITZA (acute kidney injury) Is this a current diagnosis for this admission?: Yes Plan: Most likely prerenal due to dehydration. Creatinine 1.61 on admission. No previous labs available. Patient and family denies any history of CKD. Cautious volume resuscitation guided by volume status. Monitor electrolytes and volume status. Obtain renal ultrasound and consult nephrology if no improvement. Avoid nephrotoxic meds. 05/02/2020-admission serum creatinine 1.6. Do not Have the previous labs available. To do the follow-up labs tomorrow. 05/03/20-on admission serum creatinine is 1.6 improved to 1.47 today. (4) Hyponatremia Is this a current diagnosis for this admission?: Yes Plan: 05/03/2020-serum sodium is 132. Hyponatremia most likely secondary to poor oral intake. - Time Anticipated Discharge Disposition: Longterm Facility Anticipated Discharge Timeframe: within 48 hours
[2020-05-03] MEDS: LISINOPRIL 5 MG TABLET PO SCH (11:39)
[2020-05-03] MEDS: DOCUSATE SODIUM 100 MG CAPSULE PO SCH (11:39)
[2020-05-03] MEDS: TAMSULOSIN HCL 0.4 MG CAP.SR.24H PO SCH (11:39)
[2020-05-03] MEDS: FAMOTIDINE 20 MG TABLET PO SCH ×2 (11:39→21:44)
[2020-05-03] MEDS: UMECLIDINIUM BROMIDE 62.5 MCG/DOSE IH SCH (11:40)
[2020-05-03] MEDS: FINASTERIDE 5 MG TABLET PO SCH (11:40)
[2020-05-03] MEDS: APIXABAN 2.5 MG TABLET PO SCH ×2 (11:40→17:40)
[2020-05-03] MEDS: PIPERACILLIN SODIUM/TAZOBACTAM 3.375 GM in NORMAL SALINE 100 ML IV SCH ×2 (15:13→22:08)
[2020-05-03] MEDS: ASCORBIC ACID 500 MG TABLET PO SCH (17:40)
[2020-05-03] MEDS: ATORVASTATIN CALCIUM 20 MG TABLET PO SCH (21:39)
[2020-05-03] MEDS: TEMAZEPAM 7.5 MG CAPSULE PO PRN (21:39)
[2020-05-03] MEDS: ACETAMINOPHEN 325 MG TABLET PO PRN (21:45)
[2020-05-04 05:02] LABS: ABSOLUTE EOSINOPHILS # (AUTO) 0.1 10^3/uL (0.0-0.6); ABSOLUTE LYMPHOCYTES (AUTO) 0.9 10^3/uL (0.5-4.7); ABSOLUTE MONOCYTES (AUTO) 0.6 10^3/uL (0.1-1.4); ABSOLUTE NEUT (AUTO) 8.1 10^3/uL (1.7-8.2); BASOPHILS % (AUTO) 0.3 % (0-2); HEMATOCRIT 34.1 % (37.9-51.0); HEMOGLOBIN 11.8 g/dL (13.5-17.0); LYMPHOCYTES % (AUTO) 9.7 % (13-45); MEAN CORPUSCULAR HEMOGLOBIN 30.7 pg (27.0-33.4); MEAN CORPUSCULAR HGB CONC 34.4 g/dL (32.0-36.0); MEAN CORPUSCULAR VOLUME 89 fl (80-97); MONOCYTES % (AUTO) 6.1 % (3-13); PLATELET COUNT 158 10^3/uL (150-450); RED BLOOD COUNT 3.82 10^6/uL (4.35-5.55); RED CELL DISTRIBUTION WIDTH 15.5 % (11.5-14.0); SEGMENTED NEUTROPHILS % (AUTO) 82.9 % (42-78); TOTAL CELLS COUNTED % (AUTO) 100 %; WHITE BLOOD COUNT 9.7 10^3/uL (4.0-10.5)
[2020-05-04 05:36] LABS: ALBUMIN 2.7 g/dL (3.5-5.0); ALKALINE PHOSPHATASE 79 U/L (38-126); ANION GAP 8 (5-19); ASPARTATE AMINO TRANSFERASE 89 U/L (17-59); BILIRUBIN,DIRECT 0.6 mg/dL (0.0-0.4); BILIRUBIN,TOTAL 1.7 mg/dL (0.2-1.3); BLOOD UREA NITROGEN 37 mg/dL (7-20); CALCIUM 7.9 mg/dL (8.4-10.2); CARBON DIOXIDE 23 mmol/L (22-30); CHLORIDE 104 mmol/L (98-107); GLUCOSE 96 mg/dL (75-110); POTASSIUM 4.6 mmol/L (3.6-5.0); TOTAL PROTEIN 5.7 g/dL (6.3-8.2)
[2020-05-04] MEDS: OXYCODONE-ACETAMINOPHEN 5-325 MG TABLET PO PRN ×2 (05:38→09:41)
[2020-05-04] MEDS: PIPERACILLIN SODIUM/TAZOBACTAM 3.375 GM in NORMAL SALINE 100 ML IV SCH ×3 (05:38→21:43)
[2020-05-04] MEDS: LEVOTHYROXINE SODIUM 0.112 MG TABLET PO SCH (05:38)
[2020-05-04 05:52] LABS: C-REACTIVE PROTEIN 264.1 mg/L (<10.0)
[2020-05-04] MEDS: PANTOPRAZOLE SODIUM 40 MG TABLET.DR PO SCH (08:00)
--- NOTE | 2020-05-04 09:16 | PDOC PROGRESS REPORT ---
Subjective Date:: 05/04/20 Subjective:: 84 year old male Past medical history of atrial fibrillation, hyperlipidemia, hy pertension, nonoxygen dependent COPD, who recently moved to [place] from [place]. Patient is brought to ED by EMS after a fall. Patient is accompanied by his daughter who is also the source of history. As per daughter today when patient was trying to get out of the car, he lost his balance and fell to the floor landing on his right hip, before hitting his head to the floor patient's daughter was able to catch him. Patient is stating that before falling down patient felt lightheaded and lost his balance, patient denying any chest pain or palpitation prior to fall, or syncope after a fall. As per family patient has been complaining of dizziness for the last couple of weeks and also noted to have low appetite. Patient does have history of atrial fibrillation but denies any history of CAD, seizure disorder, CVA, prior falls. Patient is stating that he is keeping hydrated but as per daughter who is present in the room is saying that they have noticed him to have low appetite and been sleeping a lot lately. Patient is complaining of right hip pain, sharp, 5/5 on severity scale, worse with movement, and better with staying still, he denies any fever, shortness of breath, chills, chest pain, palpitation, nausea, vomiting, diarrhea, constipation or any urinary symptoms. In ED a stat head CT was negative for any acute abnormalities, hip and femur x- rays did not show any acute abnormalities but CT abdomen and pelvis confirmed acute right anterior acetabular fracture with involvement of the right superior and inferior pubic rami. Orthopedic surgery was consulted and no acute intervention was recommended at this point and recommendation was for patient to be admitted and will be evaluated by orthopedic surgery tomorrow. 05/[id number]-myxz-old male admitted with fall. He has history of atrial fibrillation, hypertension, COPD. Hip x-rays indicate 12 acetabular fracture. Consultation with Dr. mosquera was done, his recommendation is physical therapy. Patient's son is bedside and he is looking around the town for a good detention facility. Patient is receiving IV pain medications requesting for increased frequency and higher doses at this time. 05/[id number]-mkil-old male admitted with history of fall. Conservative management is recommended by orthopedic team. This morning he is on 3 L of oxygen and short of breath. Test x-ray was done it indicated with extensive bilateral infiltrates. Started on IV Zosyn. To cancel the discharge at this ti ca. Respiratory panel is requested. 05/[id number]-[id number]-old male admitted with history of fall found to have acetabular fracture in association with pubic ramus fracture. Patient was tested positive for COVID-19. Pulse ox is 91% on 1 L this morning. Heart rate in the 40s this morning to hold amiodarone at this time. EKG was requested. Patient is comfortably in the bed communicating reasonably. Family was called and given update. Reason For Visit: FALL, HIP FRACTURE Physical Exam Vital Signs: Temp Pulse Resp BP Pulse Ox 97.9 F 46 L 16 121/54 L 91 L 05/04/20 08:52 05/04/20 08:22 05/04/20 08:22 05/04/20 08:22 05/04/20 08:22 Intake & Output 05/03/20 05/04/20 05/05/20 06:59 06:59 06:59 Intake Total 2360 550 Balance 2360 550 Weight 69.3 kg 69.8 kg General appearance: PRESENT: no acute distress, cooperative Head exam: PRESENT: normocephalic Eye exam: PRESENT: PERRLA Mouth exam: PRESENT: dry mucosa Teeth exam: PRESENT: poor dentation Neck exam: ABSENT: carotid bruit, JVD, lymphadenopathy, thyromegaly Respiratory exam: PRESENT: decreased breath sounds Cardiovascular exam: PRESENT: bradycardia GI/Abdominal exam: PRESENT: normal bowel sounds, soft. ABSENT: distended, guarding, mass, organolmegaly, rebound, tenderness Rectal exam: PRESENT: deferred Extremities exam: PRESENT: full ROM. ABSENT: calf tenderness, clubbing, pedal edema Neurological exam: PRESENT: alert, awake, oriented to person, oriented to place, oriented to time, oriented to situation, CN II-XII grossly intact. ABSENT: motor sensory deficit Psychiatric exam: PRESENT: appropriate affect, normal mood. ABSENT: homicidal ideation, suicidal ideation Results Laboratory Results: 05/04/20 04:01 05/04/20 04:01 05/03/20 05/04/20 05/04/20 15:26 04:01 04:01 WBC 9.7 RBC 3.82 L Hgb 11.8 L Hct 34.1 L MCV 89 MCH 30.7 MCHC 34.4 RDW 15.5 H Plt Count 158 Seg Neutrophils % 82.9 H Sodium 135.3 L Potassium 4.6 Chloride 104 Carbon Dioxide 23 Anion Gap 8 BUN 37 H Creatinine 1.41 H Est GFR ( Amer) 58 L Glucose 96 Calcium 7.9 L Magnesium 2.5 H Ferritin 390.00 Total Bilirubin 1.7 H AST 89 H Alkaline Phosphatase 79 C-Reactive Protein 264.1 H Total Protein 5.7 L Albumin 2.7 L Blood Type O POSITIVE 05/01/20 16:04 Clean Catch Midstream Urine Culture - Final Aerococcus Urinae Impressions: Elbow X-Ray 05/01/20 11:53 IMPRESSION: CHRONIC DEGENERATIVE CHANGES. NO RADIOGRAPHIC EVIDENCE OF ACUTE INJURY. Hip X-Ray 05/01/20 11:53 IMPRESSION: MILD DEGENERATIVE CHANGES IN THE HIPS. NO ACUTE TRAUMATIC FINDINGS. POSSIBLE INGUINAL HERNIAS. Femur X-Ray 05/01/20 11:54 IMPRESSION: CHRONIC DEGENERATIVE CHANGES. NO RADIOGRAPHIC EVIDENCE OF ACUTE INJURY. Lumbar Spine X-Ray 05/01/20 11:54 IMPRESSION: DEGENERATIVE DISC DISEASE. NO ACUTE FINDINGS. Head CT 05/01/20 19:32 IMPRESSION: 1. No obvious acute intra-axial abnormalities. 2. Bilateral frontal sinus disease. 3. Very subtle left frontal extra-axial focal fluid and very questionable, seen on only one slice left frontal bone fracture. Both findings may be artifact. Recommend short term follow-up in several hours or as clinically indicated. Abdomen/Pelvis CT 05/01/20 19:33 IMPRESSION: 1. Acute right anterior acetabular fracture with involvement of the right superior and inferior pubic rami. No significant displacement. Mild associated soft tissue thickening. 2. Bilateral inguinal hernia. Herniation of small bowel in the right and sigmoid colon the left. There is colonic dilatation possibly related to the left inguinal hernia. 3. Diffuse atherosclerotic disease. 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 Greater stenosis of both common femoral arteries greater on the right. 4. Cardiomegaly mainly dilatation of the right and left atria. Bibasilar mildly nodular infiltrates greater on the right acute versus chronic. Viral pneumonia not excluded. Chest X-Ray 05/03/20 00:00 IMPRESSION: Extensive bilateral interstitial airspace disease most marked in the right upper lobe. Assessment and Plan - Diagnosis (1) Hip fracture, right Qualifiers: Encounter type: initial encounter Is this a current diagnosis for this admission?: Yes Plan: Nondisplaced fracture of right acetabulum, inferior and superior rami. Right lower extremity neurovascularly intact. Physical examination is limited due to pain. Orthopedic surgery has been consulted, no acute intervention indicated, pending evaluation. Continue supportive measures, implement fall precautions. Orthopedic surgery and physical therapy consulted. 05/02/2020-patient admitted with right acetabular fracture in association with fractures of the inferior and superior rami. Consultation with orthopedic team was done recommendation is conservative management and physical therapy with possible rehab placement. Physical therapy was done recommendation is rehab placement. 05/03/20-patient admitted with a fall found to have acetabular, inferior and superior rami fractures. And conservative management. Physical therapy recommended rehab. 05/04/20-patient admitted for fall and has acetabular, inferior superior rami fractures. And conservative management. Patient was found COVID-19 positive patient may need to go to a facility accepting COVID-19 patients. (2) Atrial fibrillation Qualifiers: Atrial fibrillation type: permanent Qualified Code(s): I48.21 - Permanent atrial fibrillation Is this a current diagnosis for this admission?: No Plan: History of chronic persistent atrial fibrillation,. Rate controlled and anticoagulated. Resume amiodarone and beta-blockers. Hold Eliquis in anticipation for possible orthopedic surgery. As per family patient's dosage was decreased from 5 mg p.o. twice daily to 2.5 mg p.o. twice daily but they could not provide a reason why. Given history of dizziness and recent fall chronic anticoagulation needs to be addressed with patient and family and cardiology. 05/02/20-patient has history of chronic atrial fibrillation on Eliquis. He is also on amiodarone. To continue Eliquis and amiodarone at this time. 05/03/2020-patient has history of atrial fibrillation. Plan is to continue amiodarone, Eliquis at this time. Heart rate is in the fifties 05/04/2020-patient has history of atrial fibrillation, to continue Eliquis and hold amiodarone heart rate in the 40s this morning. EKG was requested. (3) NITZA (acute kidney injury) Is this a current diagnosis for this admission?: Yes Plan: Most likely prerenal due to dehydration. Creatinine 1.61 on admission. No previous labs available. Patient and family denies any history of CKD. Cautious volume resuscitation guided by volume status. Monitor electrolytes and volume status. Obtain renal ultrasound and consult nephrology if no improvement. Avoid nephrotoxic meds. 05/02/2020-admission serum creatinine 1.6. Do not Have the previous labs available. To do the follow-up labs tomorrow. 05/03/20-on admission serum creatinine is 1.6 improved to 1.47 today. 05/04/2020-serum creatinine today is 1.4. Acute kidney injury is resolving. (4) Hyponatremia Is this a current diagnosis for this admission?: Yes Plan: 05/03/2020-serum sodium is 132. Hyponatremia most likely secondary to poor oral intake. 05/04/2020-serum sodium is 135. Hyponatremia resolving. (5) COVID-19 Is this a current diagnosis for this admission?: Yes Plan: 05/04/2020-patient was tested positive for COVID-19 chest x-ray shows bilateral infiltrates. He was started on dexamethasone patient is already on Eliquis, to give plasma and remdesivir. And is on IV Zosyn. He is also receiving vitamin supplementations. - Time Anticipated Discharge Disposition: Care Home Facility Anticipated Discharge Timeframe: within 72 hours
[2020-05-04] MEDS: MAGNESIUM HYDROXIDE SUSP 30 ML UDCUP PO PRN (09:39)
[2020-05-04] MEDS: LISINOPRIL 5 MG TABLET PO SCH (09:40)
[2020-05-04] MEDS: ASCORBIC ACID 500 MG TABLET PO SCH ×2 (09:40→17:24)
[2020-05-04] MEDS: DOCUSATE SODIUM 100 MG CAPSULE PO SCH (09:40)
[2020-05-04] MEDS: APIXABAN 2.5 MG TABLET PO SCH ×2 (09:40→17:24)
[2020-05-04] MEDS: ASPIRIN 81 MG TABLET, ENT COATED PO SCH (09:40)
[2020-05-04] MEDS: TAMSULOSIN HCL 0.4 MG CAP.SR.24H PO SCH (09:40)
[2020-05-04] MEDS: CHOLECALCIFEROL (D3) 1,000 UNIT (25 MCG) TABLET PO SCH (09:40)
[2020-05-04] MEDS: FINASTERIDE 5 MG TABLET PO SCH (09:41)
[2020-05-04] MEDS: DEXAMETHASONE SOD PHOS INJ 10 MG/1 ML VIAL IV SCH (09:41)
[2020-05-04] MEDS: UMECLIDINIUM BROMIDE 62.5 MCG/DOSE IH SCH (09:42)
[2020-05-04] MEDS: ZINC SULFATE 220 MG CAPSULE PO SCH (09:43)
[2020-05-04] MEDS: IPRATROPIUM/ALBUTEROL 0.5-2.5 MG/3 ML AMPUL NEB PRN (09:50)
[2020-05-04] MEDS ORDERED: FUROSEMIDE INJ/PF 20 MG/2 ML SDV IV SCH (10:00)
[2020-05-04] MEDS: FUROSEMIDE INJ/PF 20 MG/2 ML SDV IV SCH (10:15)
[2020-05-04] MEDS: IVERMECTIN 3 MG TABLET PO SCH (10:30)
--- NOTE | 2020-05-04 11:54 | EKG REPORT ---
SEVERITY:- ABNORMAL ECG - SINUS BRADYCARDIA RIGHT BUNDLE BRANCH BLOCK : Confirmed by: Sanju Olson MD 04-May-2020 11:53:24
--- NOTE | 2020-05-04 14:56 | RADIOLOGY REPORT (SQ) ---
EXAM DESCRIPTION: CTA CHEST IMAGES COMPLETED DATE/TIME: 05/04/2020 11:24 am REASON FOR STUDY: r/o PE COMPARISON: None. TECHNIQUE: CT scan of the chest performed using helical scanning technique with dynamic intravenous contrast injection. Images reviewed with lung, soft tissue and bone windows. Reconstructed coronal and sagittal MPR images reviewed. Additional 3 dimensional post-processing performed to develop Maximal Intensity Projection images ([place] P). All images stored on PACS. All CT scanners at this facility use dose modulation, iterative reconstruction, and/or weight based d osing when appropriate to reduce radiation dose to as low as reasonably achievable (ALARA). [facility]: Dose Right [facility]: CareDose [facility]: Dose Right [facility]: Teradose 4D [facility]: Offermatica CONTRAST TYPE AND DOSE: contrast/concentration: Isovue 350.00 mmol/ml; Total Contrast Delivered: 65. 0 ml; Total Saline Delivered: 80.0 ml Contrast bolus optimized for the pulmonary arteries. Not diagnostic for the aorta. RENAL FUNCTION: BUN 37 creatinine 1.41 RADIATION DOSE: CT Rad equipment meets quality standard of care and radiation dose reduction techniq ues were employed. CTDIvol: 13.2 - 30.0 mGy. DLP: 566 mGy-cm. . LIMITATIONS: None. FINDINGS: LUNGS AND PLEURA: There are bilateral ground-glass infiltrates, right more than left. [place] ited more dense opacification in each lower lobe. AORTA AND GREAT VESSELS: No aneurysm. Contrast bolus not optimized for the aorta. HEART: No pericardial effusion. Moderate to marked coronary artery calcifications. PULMONARY ARTERIES: No emboli visualized in the main pulmonary arteries or the segmental branches. HILAR AND MEDIASTINAL STRUCTURES: No identified masses or abnormal nodes. HARDWARE: None in the chest. UPPER ABDOMEN: No significant findings. Limited exam. THYROID AND OTHER SOFT TISSUES: No masses. No adenopathy. BONES: No acute or significant finding. 3D MIPS: Confirm above findings. OTHER: No other significant finding. IMPRESSION: 1. Bilateral ground-glass infiltrates as described. These infiltrates are more diffuse in the right lung than is usually seen with COVID-19 pneumonia. May indicate chronic interstitial c hanges or interstitial edema. However, cannot exclude COVID-19 pneumonia. 2. Limited consolidation in both lower lobes posteriorly, atelectasis versus pneumonia. COMMENT: Quality ID # [id number]: Final reports with documentation of one or more dose reduction techniques (e.g., Automated exposure control, adjustment of the mA and/or kV according to patient size, use of iterative reconstruction technique) TECHNICAL DOCUMENTATION: JOB ID: [id number] 2010 [employer]- All Rights Reserved Reading location - IP/workstation name: [email or web address]
[2020-05-04] MEDS: ATORVASTATIN CALCIUM 20 MG TABLET PO SCH (21:43)
[2020-05-05 05:24] LABS: C-REACTIVE PROTEIN 252.1 mg/L (<10.0)
[2020-05-05] MEDS: LEVOTHYROXINE SODIUM 0.112 MG TABLET PO SCH (05:25)
[2020-05-05] MEDS: PIPERACILLIN SODIUM/TAZOBACTAM 3.375 GM in NORMAL SALINE 100 ML IV SCH ×3 (05:25→21:33)
[2020-05-05] MEDS ORDERED: VANCOMYCIN HCL INJ 1000 MG VIAL IV PRN (07:08)
[2020-05-05] MEDS ORDERED: VANCOMYCIN HCL 1,250 MG in DEXTROSE 5%-WATER 250 ML IV ONE ×2 (07:15→11:00)
[2020-05-05 09:23] LABS: HEMATOCRIT 36.8 % (37.9-51.0); HEMOGLOBIN 12.5 g/dL (13.5-17.0); MEAN CORPUSCULAR HEMOGLOBIN 30.1 pg (27.0-33.4); MEAN CORPUSCULAR HGB CONC 33.9 g/dL (32.0-36.0); MEAN CORPUSCULAR VOLUME 89 fl (80-97); PLATELET COUNT 197 10^3/uL (150-450); RED BLOOD COUNT 4.14 10^6/uL (4.35-5.55); RED CELL DISTRIBUTION WIDTH 15.4 % (11.5-14.0); WHITE BLOOD COUNT 14.4 10^3/uL (4.0-10.5)
[2020-05-05 09:43] LABS: ABSOLUTE LYMPHOCYTES# (MANUAL) 0.7 10^3/uL (0.5-4.7); ABSOLUTE MONOCYTES # (MANUAL) 0.4 10^3/uL (0.1-1.4); ANISOCYTOSIS SLIGHT; BASOPHILS % (MANUAL) 0 % (0-2); EOSINOPHILS % (MANUAL) 0 % (0-6); LYMPHOCYTES % (MANUAL) 5 % (13-45); MONOCYTES % (MANUAL) 3 % (3-13); OVALOCYTES SLIGHT; PLATELET CLUMPS PRESENT; PLATELET COMMENT ADEQUATE; POIKILOCYTOSIS SLIGHT; SEGMENTED NEUTROPHILS % (MAN) 92 % (42-78); TOTAL CELLS COUNTED 100
[2020-05-05] MEDS: FINASTERIDE 5 MG TABLET PO SCH (09:43)
[2020-05-05] MEDS: ZINC SULFATE 220 MG CAPSULE PO SCH (09:43)
[2020-05-05] MEDS: ASPIRIN 81 MG TABLET, ENT COATED PO SCH (09:43)
[2020-05-05] MEDS: TAMSULOSIN HCL 0.4 MG CAP.SR.24H PO SCH (09:43)
[2020-05-05] MEDS: ASCORBIC ACID 500 MG TABLET PO SCH ×2 (09:43→17:41)
[2020-05-05] MEDS: DOCUSATE SODIUM 100 MG CAPSULE PO SCH (09:43)
[2020-05-05] MEDS: DEXAMETHASONE SOD PHOS INJ 10 MG/1 ML VIAL IV SCH (09:44)
[2020-05-05] MEDS: FUROSEMIDE INJ/PF 20 MG/2 ML SDV IV SCH (09:44)
[2020-05-05] MEDS: LISINOPRIL 5 MG TABLET PO SCH (09:44)
[2020-05-05] MEDS: PANTOPRAZOLE SODIUM 40 MG TABLET.DR PO SCH (09:44)
[2020-05-05] MEDS: APIXABAN 2.5 MG TABLET PO SCH ×2 (09:44→17:41)
[2020-05-05] MEDS: CHOLECALCIFEROL (D3) 1,000 UNIT (25 MCG) TABLET PO SCH (09:44)
[2020-05-05] MEDS ORDERED: VANCOMYCIN HCL INJ 1000 MG VIAL IV SCH (10:00)
--- NOTE | 2020-05-05 10:00 | PDOC PROGRESS REPORT ---
Subjective Date:: 05/05/20 Subjective:: 84 year old male Past medical history of atrial fibrillation, hyperlipidemia, hy pertension, nonoxygen dependent COPD, who recently moved to [place] from [place]. Patient is brought to ED by EMS after a fall. Patient is accompanied by his daughter who is also the source of history. As per daughter today when patient was trying to get out of the car, he lost his balance and fell to the floor landing on his right hip, before hitting his head to the floor patient's daughter was able to catch him. Patient is stating that before falling down patient felt lightheaded and lost his balance, patient denying any chest pain or palpitation prior to fall, or syncope after a fall. As per family patient has been complaining of dizziness for the last couple of weeks and also noted to have low appetite. Patient does have history of atrial fibrillation but denies any history of CAD, seizure disorder, CVA, prior falls. Patient is stating that he is keeping hydrated but as per daughter who is present in the room is saying that they have noticed him to have low appetite and been sleeping a lot lately. Patient is complaining of right hip pain, sharp, 5/5 on severity scale, worse with movement, and better with staying still, he denies any fever, shortness of breath, chills, chest pain, palpitation, nausea, vomiting, diarrhea, constipation or any urinary symptoms. In ED a stat head CT was negative for any acute abnormalities, hip and femur x- rays did not show any acute abnormalities but CT abdomen and pelvis confirmed acute right anterior acetabular fracture with involvement of the right superior and inferior pubic rami. Orthopedic surgery was consulted and no acute intervention was recommended at this point and recommendation was for patient to be admitted and will be evaluated by orthopedic surgery tomorrow. 05/02/[id number]-aedv-old male admitted with fall. He has history of atrial fibrillation, hypertension, COPD. Hip x-rays indicate 12 acetabular fracture. Consultation with Dr. mosquera was done, his recommendation is physical therapy. Patient's son is bedside and he is looking around the town for a good retirement facility. Patient is receiving IV pain medications requesting for increased frequency and higher doses at this time. 05/03/[id number]-jetz-old male admitted with history of fall. Conservative management is recommended by orthopedic team. This morning he is on 3 L of oxygen and short of breath. Test x-ray was done it indicated with extensive bilateral infiltrates. Started on IV Zosyn. To cancel the discharge at this ti al. Respiratory panel is requested. 05/[id number]-old male admitted with history of fall found to have acetabular fracture in association with pubic ramus fracture. Patient was tested positive for COVID-19. Pulse ox is 91% on 1 L this morning. Heart rate in the 40s this morning to hold amiodarone at this time. EKG was requested. Patient is comfortably in the bed communicating reasonably. Family was called and given update. 05/05/2020-no acute events in the last 24 hours. Afebrile. Heart rate is in the 50s this morning. Comfortably in the bed communicating well. He is waiting for placement in the retirement that accepts COVID-19 patients. Reason For Visit: FALL, HIP FRACTURE Physical Exam Vital Signs: Temp Pulse Resp BP Pulse Ox 98.1 F 48 L 20 136/72 H 93 05/05/20 03:52 05/05/20 03:52 05/05/20 03:52 05/05/20 03:52 05/05/20 03:52 Intake & Output 05/04/20 05/05/20 05/06/20 06:59 06:59 06:59 Intake Total 550 1415 Output Total 600 Balance 550 815 Weight 69.8 kg 67.5 kg General appearance: PRESENT: no acute distress, cooperative Head exam: PRESENT: normocephalic Eye exam: PRESENT: PERRLA Mouth exam: PRESENT: moist, tongue midline Teeth exam: PRESENT: poor dentation Neck exam: ABSENT: carotid bruit, JVD, lymphadenopathy, thyromegaly Respiratory exam: PRESENT: decreased breath sounds Cardiovascular exam: PRESENT: RRR. ABSENT: diastolic murmur, rubs, systolic murmur GI/Abdominal exam: PRESENT: normal bowel sounds, soft. ABSENT: distended, guarding, mass, organolmegaly, rebound, tenderness Rectal exam: PRESENT: deferred Extremities exam: PRESENT: full ROM. ABSENT: calf tenderness, clubbing, pedal edema Neurological exam: PRESENT: alert, awake, oriented to person, oriented to place, oriented to time, oriented to situation, CN II-XII grossly intact. ABSENT: motor sensory deficit Psychiatric exam: PRESENT: appropriate affect, normal mood. ABSENT: homicidal ideation, suicidal ideation Results Laboratory Results: 05/05/20 08:23 05/05/20 08:23 05/03/20 05/05/20 05/05/20 15:26 03:58 08:23 WBC 14.4 H RBC 4.14 L Hgb 12.5 L Hct 36.8 L MCV 89 MCH 30.1 MCHC 33.9 RDW 15.4 H Plt Count 197 Seg Neutrophils % Not Reportable Sodium Potassium Chloride Carbon Dioxide Anion Gap BUN Creatinine Est GFR ( Amer) Est GFR (Non-Af Amer) Glucose Calcium Magnesium Ferritin 553.00 H Total Bilirubin AST Alkaline Phosphatase C-Reactive Protein 252.1 H Total Protein Albumin Blood Type O POSITIVE 05/05/20 08:23 WBC RBC Hgb Hct MCV MCH MCHC RDW Plt Count Seg Neutrophils % Sodium Cancelled Potassium Cancelled Chloride Cancelled Carbon Dioxide Cancelled Anion Gap Cancelled BUN Cancelled Creatinine Cancelled Est GFR ( Amer) Cancelled Est GFR (Non-Af Amer) Cancelled Glucose Cancelled Calcium Cancelled Magnesium Cancelled Ferritin Total Bilirubin Cancelled AST Cancelled Alkaline Phosphatase Cancelled C-Reactive Protein Total Protein Cancelled Albumin Cancelled Blood Type 05/01/20 16:04 Clean Catch Midstream Urine Culture - Final Aerococcus Urinae Impressions: Elbow X-Ray 05/01/20 11:53 IMPRESSION: CHRONIC DEGENERATIVE CHANGES. NO RADIOGRAPHIC EVIDENCE OF ACUTE INJURY. Hip X-Ray 05/01/20 11:53 IMPRESSION: MILD DEGENERATIVE CHANGES IN THE HIPS. NO ACUTE TRAUMATIC FINDINGS. POSSIBLE INGUINAL HERNIAS. Femur X-Ray 05/01/20 11:54 IMPRESSION: CHRONIC DEGENERATIVE CHANGES. NO RADIOGRAPHIC EVIDENCE OF ACUTE INJURY. Lumbar Spine X-Ray 05/01/20 11:54 IMPRESSION: DEGENERATIVE DISC DISEASE. NO ACUTE FINDINGS. Head CT 05/01/20 19:32 IMPRESSION: 1. No obvious acute intra-axial abnormalities. 2. Bilateral frontal sinus disease. 3. Very subtle left frontal extra-axial focal fluid and very questionable, seen on only one slice left frontal bone fracture. Both findings may be artifact. Recommend short term follow-up in several hours or as clinically indicated. Abdomen/Pelvis CT 05/01/20 19:33 IMPRESSION: 1. Acute right anterior acetabular fracture with involvement of the right superior and inferior pubic rami. No significant displacement. Mild associated soft tissue thickening. 2. Bilateral inguinal hernia. Herniation of small bowel in the right and sigmoid colon the left. There is colonic dilatation possibly related to the left inguinal hernia. 3. Diffuse atherosclerotic disease. 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 Greater stenosis of both common femoral arteries greater on the right. 4. Cardiomegaly mainly dilatation of the right and left atria. Bibasilar mildly nodular infiltrates greater on the right acute versus chronic. Viral pneumonia not excluded. Chest X-Ray 05/03/20 00:00 IMPRESSION: Extensive bilateral interstitial airspace disease most marked in the right upper lobe. Chest/Abdomen CTA 05/04/20 00:00 IMPRESSION: 1. Bilateral ground-glass infiltrates as described. These infiltrates are more diffuse in the right lung than is usually seen with COVID- 19 pneumonia. May indicate chronic interstitial changes or interstitial edema. However, cannot exclude COVID-19 pneumonia. 2. Limited consolidation in both lower lobes posteriorly, atelectasis versus pneumonia. Assessment and Plan - Diagnosis (1) Hip fracture, right Qualifiers: Encounter type: initial encounter Is this a current diagnosis for this admission?: Yes Plan: Nondisplaced fracture of right acetabulum, inferior and superior rami. Right lower extremity neurovascularly intact. Physical examination is limited due to pain. Orthopedic surgery has been consulted, no acute intervention indicated, pending evaluation. Continue supportive measures, implement fall precautions. Orthopedic surgery and physical therapy consulted. 05/02/2020-patient admitted with right acetabular fracture in association with fractures of the inferior and superior rami. Consultation with orthopedic team was done recommendation is conservative management and physical therapy with possible rehab placement. Physical therapy was done recommendation is rehab placement. 05/03/20-patient admitted with a fall found to have acetabular, inferior and superior rami fractures. And conservative management. Physical therapy recommended rehab. 05/04/20-patient admitted for fall and has acetabular, inferior superior rami fractures. And conservative management. Patient was found COVID-19 positive patient may need to go to a facility accepting COVID-19 patients. 05/05/[id number]-oisy-old male admitted with a fracture conservative management was recommended by the orthopedic team. Patient was found to be COVID-19 positive waiting for placement at facility accepting COVID-19 patients. Pulse ox is 91% on 1 L this morning. Comfortably in the bed communicating okay not in distress. (2) Atrial fibrillation Qualifiers: Atrial fibrillation type: permanent Qualified Code(s): I48.21 - Permanent atrial fibrillation Is this a current diagnosis for this admission?: No Plan: History of chronic persistent atrial fibrillation,. Rate controlled and anticoagulated. Resume amiodarone and beta-blockers. Hold Eliquis in anticipation for possible orthopedic surgery. As per family patient's dosage was decreased from 5 mg p.o. twice daily to 2.5 mg p.o. twice daily but they could not provide a reason why. Given history of dizziness and recent fall chronic anticoagulation needs to be a ddressed with patient and family and cardiology. 05/02/20-patient has history of chronic atrial fibrillation on Eliquis. He is also on amiodarone. To continue Eliquis and amiodarone at this time. 05/03/2020-patient has history of atrial fibrillation. Plan is to continue amiodarone, Eliquis at this time. Heart rate is in the fifties 05/04/2020-patient has history of atrial fibrillation, to continue Eliquis and hold amiodarone heart rate in the 40s this morning. EKG was requested. 05/05/2019-patient has history of chronic atrial fibrillation on Eliquis. Plan is to continue to hold amiodarone because of the severe bradycardia. Patient is asymptomatic. (3) NITZA (acute kidney injury) Is this a current diagnosis for this admission?: Yes Plan: Most likely prerenal due to dehydration. Creatinine 1.61 on admission. No previous labs available. Patient and family denies any history of CKD. Cautious volume resuscitation guided by volume status. Monitor electrolytes and volume status. Obtain renal ultrasound and consult nephrology if no improvement. Avoid nephrotoxic meds. 05/02/2020-admission serum creatinine 1.6. Do not Have the previous labs available. To do the follow-up labs tomorrow. 05/03/20-on admission serum creatinine is 1.6 improved to 1.47 today. 05/04/2020-serum creatinine today is 1.4. Acute kidney injury is resolving. 05/05/2019-serum creatinine today is pending. (4) Hyponatremia Is this a current diagnosis for this admission?: Yes Plan: 05/03/2020-serum sodium is 132. Hyponatremia most likely secondary to poor oral intake. 05/04/2020-serum sodium is 135. Hyponatremia resolving. (5) COVID-19 Is this a current diagnosis for this admission?: Yes Plan: 05/04/2020-patient was tested positive for COVID-19 chest x-ray shows bilateral infiltrates. He was started on dexamethasone patient is already on Eliquis, to give plasma and remdesivir. And is on IV Zosyn. He is also receiving vitamin supplementations. - Time Anticipated Discharge Disposition: Home, Self Care Anticipated Discharge Timeframe: within 48 hours
[2020-05-05 12:05] LABS: ALBUMIN 2.9 g/dL (3.5-5.0); ALKALINE PHOSPHATASE 96 U/L (38-126); ANION GAP 10 (5-19); ASPARTATE AMINO TRANSFERASE 97 U/L (17-59); BILIRUBIN,DIRECT 0.4 mg/dL (0.0-0.4); BILIRUBIN,TOTAL 1.1 mg/dL (0.2-1.3); BLOOD UREA NITROGEN 44 mg/dL (7-20); CALCIUM 8.4 mg/dL (8.4-10.2); CARBON DIOXIDE 22 mmol/L (22-30); CHLORIDE 104 mmol/L (98-107); GLUCOSE 139 mg/dL (75-110); POTASSIUM 4.6 mmol/L (3.6-5.0); TOTAL PROTEIN 6.3 g/dL (6.3-8.2)
[2020-05-05] MEDS: UMECLIDINIUM BROMIDE 62.5 MCG/DOSE IH SCH (13:53)
[2020-05-05] MEDS: IPRATROPIUM/ALBUTEROL 0.5-2.5 MG/3 ML AMPUL NEB PRN (19:31)
[2020-05-05] MEDS: ATORVASTATIN CALCIUM 20 MG TABLET PO SCH (21:32)
[2020-05-06] MEDS: TEMAZEPAM 7.5 MG CAPSULE PO PRN (02:03)
[2020-05-06] MEDS: OXYCODONE-ACETAMINOPHEN 5-325 MG TABLET PO PRN ×2 (02:04→21:16)
[2020-05-06] MEDS: LEVOTHYROXINE SODIUM 0.112 MG TABLET PO SCH (06:00)
[2020-05-06] MEDS: PIPERACILLIN SODIUM/TAZOBACTAM 3.375 GM in NORMAL SALINE 100 ML IV SCH ×3 (06:00→21:17)
[2020-05-06 07:26] LABS: C-REACTIVE PROTEIN 168.3 mg/L (<10.0)
--- NOTE | 2020-05-06 07:53 | EKG REPORT ---
SEVERITY:- ABNORMAL ECG - SINUS BRADYCARDIA RIGHT BUNDLE BRANCH BLOCK : Confirmed by: Sanju Olson MD 06-May-2020 07:53:04
[2020-05-06] MEDS: IPRATROPIUM/ALBUTEROL 0.5-2.5 MG/3 ML AMPUL NEB PRN ×2 (08:33→19:02)
[2020-05-06] MEDS: ASCORBIC ACID 500 MG TABLET PO SCH ×2 (11:01→17:16)
[2020-05-06] MEDS: ZINC SULFATE 220 MG CAPSULE PO SCH (11:01)
[2020-05-06] MEDS: APIXABAN 2.5 MG TABLET PO SCH ×2 (11:01→17:16)
[2020-05-06] MEDS: TAMSULOSIN HCL 0.4 MG CAP.SR.24H PO SCH (11:01)
[2020-05-06] MEDS: CHOLECALCIFEROL (D3) 1,000 UNIT (25 MCG) TABLET PO SCH (11:01)
[2020-05-06] MEDS: DOCUSATE SODIUM 100 MG CAPSULE PO SCH (11:02)
[2020-05-06] MEDS: ASPIRIN 81 MG TABLET, ENT COATED PO SCH (11:02)
[2020-05-06] MEDS: PANTOPRAZOLE SODIUM 40 MG TABLET.DR PO SCH (11:02)
[2020-05-06] MEDS: FINASTERIDE 5 MG TABLET PO SCH (11:02)
[2020-05-06] MEDS: LISINOPRIL 5 MG TABLET PO SCH (11:02)
[2020-05-06] MEDS: METHYLPREDNISOLONE INJ 40 MG/1 ML SDV IV SCH ×2 (11:03→21:17)
[2020-05-06] MEDS: FUROSEMIDE INJ/PF 20 MG/2 ML SDV IV SCH (11:03)
[2020-05-06] MEDS: IVERMECTIN 3 MG TABLET PO SCH (11:04)
[2020-05-06] MEDS: UMECLIDINIUM BROMIDE 62.5 MCG/DOSE IH SCH (11:05)
[2020-05-06] MEDS: VANCOMYCIN HCL 1,000 MG in DEXTROSE 5%-WATER 250 ML IV SCH (11:05)
--- NOTE | 2020-05-06 16:45 | PDOC PROGRESS REPORT ---
Subjective Date:: 05/06/20 Subjective:: No adverse events overnight. No new complaints. Vital signs been stable. Hear t rate remains low, amiodarone continues to be held. Heart rate is low but steady, gets little lower physiologically when he sleeps. Reason For Visit: FALL, HIP FRACTURE Physical Exam Vital Signs: Temp Pulse Resp BP Pulse Ox 97.6 F 39 L 16 130/67 H 97 05/06/20 04:45 05/06/20 14:00 05/06/20 08:34 05/06/20 04:45 05/06/20 08:34 Intake & Output 05/05/20 05/06/20 05/07/20 06:59 06:59 06:59 Intake Total 1415 1050 Output Total 600 700 Balance 815 350 Weight 67.5 kg 66.7 kg General appearance: PRESENT: no acute distress, cooperative Respiratory exam: PRESENT: decreased breath sounds Cardiovascular exam: PRESENT: RRR. ABSENT: diastolic murmur, rubs, systolic murmur GI/Abdominal exam: PRESENT: normal bowel sounds, soft. ABSENT: distended, guarding, mass, organolmegaly, rebound, tenderness Extremities exam: PRESENT: full ROM. ABSENT: calf tenderness, clubbing, pedal edema Neurological exam: PRESENT: alert, awake, oriented to person, oriented to place, oriented to time Psychiatric exam: PRESENT: appropriate affect, normal mood. Results Laboratory Results: 05/05/20 08:23 05/05/20 11:22 05/06/20 05:21 Ferritin 504.00 H C-Reactive Protein 168.3 H Impressions: Elbow X-Ray 05/01/20 11:53 IMPRESSION: CHRONIC DEGENERATIVE CHANGES. NO RADIOGRAPHIC EVIDENCE OF ACUTE INJURY. Hip X-Ray 05/01/20 11:53 IMPRESSION: MILD DEGENERATIVE CHANGES IN THE HIPS. NO ACUTE TRAUMATIC FINDINGS. POSSIBLE INGUINAL HERNIAS. Femur X-Ray 05/01/20 11:54 IMPRESSION: CHRONIC DEGENERATIVE CHANGES. NO RADIOGRAPHIC EVIDENCE OF ACUTE INJURY. Lumbar Spine X-Ray 05/01/20 11:54 IMPRESSION: DEGENERATIVE DISC DISEASE. NO ACUTE FINDINGS. Head CT 05/01/20 19:32 IMPRESSION: 1. No obvious acute intra-axial abnormalities. 2. Bilateral frontal sinus disease. 3. Very subtle left frontal extra-axial focal fluid and very questionable, seen on only one slice left frontal bone fracture. Both findings may be artifact. Recommend short term follow-up in several hours or as clinically indicated. Abdomen/Pelvis CT 05/01/20 19:33 IMPRESSION: 1. Acute right anterior acetabular fracture with involvement of the right superior and inferior pubic rami. No significant displacement. Mild associated soft tissue thickening. 2. Bilateral inguinal hernia. Herniation of small bowel in the right and sigmoid colon the left. There is colonic dilatation possibly related to the left inguinal hernia. 3. Diffuse atherosclerotic disease. 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 Greater stenosis of both common femoral arteries greater on the right. 4. Cardiomegaly mainly dilatation of the right and left atria. Bibasilar mildly nodular infiltrates greater on the right acute versus chronic. Viral pneumonia not excluded. Chest X-Ray 05/03/20 00:00 IMPRESSION: Extensive bilateral interstitial airspace disease most marked in the right upper lobe. Chest/Abdomen CTA 05/04/20 00:00 IMPRESSION: 1. Bilateral ground-glass infiltrates as described. These infiltrates are more diffuse in the right lung than is usually seen with COVID- 19 pneumonia. May indicate chronic interstitial changes or interstitial edema. However, cannot exclude COVID-19 pneumonia. 2. Limited consolidation in both lower lobes posteriorly, atelectasis versus pneumonia. Assessment and Plan - Diagnosis (1) Hip fracture, right Qualifiers: Encounter type: initial encounter Is this a current diagnosis for this admission?: Yes (2) COVID-19 Is this a current diagnosis for this admission?: Yes (3) Atrial fibrillation Qualifiers: Atrial fibrillation type: permanent Qualified Code(s): I48.21 - Permanent atrial fibrillation Is this a current diagnosis for this admission?: Yes (4) BPH (benign prostatic hyperplasia) Qualifiers: Lower urinary tract symptom presence: symptoms absent Qualified Code(s): N40.0 - Benign prostatic hyperplasia without lower urinary tract symptoms Is this a current diagnosis for this admission?: Yes (5) COPD (chronic obstructive pulmonary disease) Qualifiers: COPD type: emphysema Emphysema type: centrilobular Qualified Code(s): J43.2 - Centrilobular emphysema Is this a current diagnosis for this admission?: Yes (6) Hyperlipemia Is this a current diagnosis for this admission?: Yes (7) Hypertension Is this a current diagnosis for this admission?: Yes - Plan Summary Summary: Conservative treatment for his nondisplaced hip fracture. He is receiving the MATH+ protocol with good effect. Breathing is stable on 1.5 L per nasal cannula. His dexamethasone was changed to Solu-Medrol as per the protocol. He gets his second dose of ivermectin today. Heart rate remains low but stable, continue to hold amiodarone. Placement for physical therapy is pending. - Time Time Spent with patient: 15-24 minutes Anticipated Discharge Disposition: [facility] Anticipated Discharge Timeframe: when bed available
[2020-05-06] MEDS: ATORVASTATIN CALCIUM 20 MG TABLET PO SCH (21:16)
[2020-05-07] MEDS: TEMAZEPAM 7.5 MG CAPSULE PO PRN (01:40)
[2020-05-07] MEDS: LEVOTHYROXINE SODIUM 0.112 MG TABLET PO SCH (05:41)
[2020-05-07] MEDS: PIPERACILLIN SODIUM/TAZOBACTAM 3.375 GM in NORMAL SALINE 100 ML IV SCH ×3 (05:41→21:42)
[2020-05-07] MEDS: OXYCODONE-ACETAMINOPHEN 5-325 MG TABLET PO PRN (05:42)
[2020-05-07] MEDS: APIXABAN 2.5 MG TABLET PO SCH ×2 (09:21→17:35)
[2020-05-07] MEDS: LISINOPRIL 5 MG TABLET PO SCH (09:21)
[2020-05-07] MEDS: TAMSULOSIN HCL 0.4 MG CAP.SR.24H PO SCH (09:21)
[2020-05-07] MEDS: ASPIRIN 81 MG TABLET, ENT COATED PO SCH (09:21)
[2020-05-07] MEDS: FINASTERIDE 5 MG TABLET PO SCH (09:21)
[2020-05-07] MEDS: PANTOPRAZOLE SODIUM 40 MG TABLET.DR PO SCH (09:22)
[2020-05-07] MEDS: CHOLECALCIFEROL (D3) 1,000 UNIT (25 MCG) TABLET PO SCH (09:22)
[2020-05-07] MEDS: ASCORBIC ACID 500 MG TABLET PO SCH ×2 (09:22→17:35)
[2020-05-07] MEDS: DOCUSATE SODIUM 100 MG CAPSULE PO SCH (09:22)
[2020-05-07] MEDS: ZINC SULFATE 220 MG CAPSULE PO SCH (09:22)
[2020-05-07] MEDS: FUROSEMIDE INJ/PF 20 MG/2 ML SDV IV SCH (09:23)
[2020-05-07] MEDS: METHYLPREDNISOLONE INJ 40 MG/1 ML SDV IV SCH ×2 (09:23→21:42)
[2020-05-07] MEDS: UMECLIDINIUM BROMIDE 62.5 MCG/DOSE IH SCH (09:28)
[2020-05-07] MEDS: IPRATROPIUM/ALBUTEROL 0.5-2.5 MG/3 ML AMPUL NEB PRN (10:40)
[2020-05-07] MEDS: VANCOMYCIN HCL 1,000 MG in DEXTROSE 5%-WATER 250 ML IV SCH (11:24)
--- NOTE | 2020-05-07 15:49 | PDOC PROGRESS REPORT ---
Subjective Date:: 05/07/20 Subjective:: No adverse events overnight. No new complaints. He says he is feeling pretty g ood. Pain is controlled. He is resting comfortably in the bed on room air with an SPO2 in the mid 90s. Reason For Visit: FALL, HIP FRACTURE Physical Exam Vital Signs: Temp Pulse Resp BP Pulse Ox 97.6 F 45 L 22 H 125/57 L 90 L 05/07/20 11:33 05/07/20 11:33 05/07/20 11:33 05/07/20 11:33 05/07/20 11:33 Intake & Output 05/06/20 05/07/20 05/08/20 06:59 06:59 06:59 Intake Total 1050 990 477 Output Total 700 1675 475 Balance 350 -685 2 Weight 66.7 kg 67.9 kg General appearance: PRESENT: no acute distress, cooperative Respiratory exam: PRESENT: decreased breath sounds Cardiovascular exam: PRESENT: RRR. ABSENT: diastolic murmur, rubs, systolic murmur GI/Abdominal exam: PRESENT: normal bowel sounds, soft. ABSENT: distended, guarding, mass, organolmegaly, rebound, tenderness Extremities exam: PRESENT: full ROM. ABSENT: calf tenderness, clubbing, pedal edema Neurological exam: PRESENT: alert, awake, oriented to person, oriented to place, oriented to time Psychiatric exam: PRESENT: appropriate affect, normal mood. Results Laboratory Results: 05/05/20 08:23 05/05/20 11:22 05/07/20 04:34 Ferritin 398.00 C-Reactive Protein 59.0 H Impressions: Elbow X-Ray 05/01/20 11:53 IMPRESSION: CHRONIC DEGENERATIVE CHANGES. NO RADIOGRAPHIC EVIDENCE OF ACUTE INJURY. Hip X-Ray 05/01/20 11:53 IMPRESSION: MILD DEGENERATIVE CHANGES IN THE HIPS. NO ACUTE TRAUMATIC FINDINGS. POSSIBLE INGUINAL HERNIAS. Femur X-Ray 05/01/20 11:54 IMPRESSION: CHRONIC DEGENERATIVE CHANGES. NO RADIOGRAPHIC EVIDENCE OF ACUTE INJURY. Lumbar Spine X-Ray 05/01/20 11:54 IMPRESSION: DEGENERATIVE DISC DISEASE. NO ACUTE FINDINGS. Head CT 05/01/20 19:32 IMPRESSION: 1. No obvious acute intra-axial abnormalities. 2. Bilateral frontal sinus disease. 3. Very subtle left frontal extra-axial focal fluid and very questionable, seen on only one slice left frontal bone fracture. Both findings may be artifact. Recommend short term follow-up in several hours or as clinically indicated. Abdomen/Pelvis CT 05/01/20 19:33 IMPRESSION: 1. Acute right anterior acetabular fracture with involvement of the right superior and inferior pubic rami. No significant displacement. Mild associated soft tissue thickening. 2. Bilateral inguinal hernia. Herniation of small bowel in the right and sigmoid colon the left. There is colonic dilatation possibly related to the left inguinal hernia. 3. Diffuse atherosclerotic disease. 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 Greater stenosis of both common femoral arteries greater on the right. 4. Cardiomegaly mainly dilatation of the right and left atria. Bibasilar mildly nodular infiltrates greater on the right acute versus chronic. Viral pneumonia not excluded. Chest X-Ray 05/03/20 00:00 IMPRESSION: Extensive bilateral interstitial airspace disease most marked in the right upper lobe. Chest/Abdomen CTA 05/04/20 00:00 IMPRESSION: 1. Bilateral ground-glass infiltrates as described. These infiltrates are more diffuse in the right lung than is usually seen with COVID- 19 pneumonia. May indicate chronic interstitial changes or interstitial edema. However, cannot exclude COVID-19 pneumonia. 2. Limited consolidation in both lower lobes posteriorly, atelectasis versus pneumonia. Assessment and Plan - Diagnosis (1) Hip fracture, right Qualifiers: Encounter type: initial encounter Is this a current diagnosis for this admission?: Yes (2) COVID-19 Is this a current diagnosis for this admission?: Yes (3) Atrial fibrillation Qualifiers: Atrial fibrillation type: permanent Qualified Code(s): I48.21 - Permanent atrial fibrillation Is this a current diagnosis for this admission?: Yes (4) BPH (benign prostatic hyperplasia) Qualifiers: Lower urinary tract symptom presence: symptoms absent Qualified Code(s): N40.0 - Benign prostatic hyperplasia without lower urinary tract symptoms Is this a current diagnosis for this admission?: Yes (5) COPD (chronic obstructive pulmonary disease) Qualifiers: COPD type: emphysema Emphysema type: centrilobular Qualified Code(s): J43.2 - Centrilobular emphysema Is this a current diagnosis for this admission?: Yes (6) Hyperlipemia Is this a current diagnosis for this admission?: Yes (7) Hypertension Is this a current diagnosis for this admission?: Yes - Plan Summary Summary: Conservative treatment for his nondisplaced hip fracture. He is receiving the MATH+ protocol with good effect. Breathing is stable on room air. His dexamethasone was changed to Solu-Medrol as per the protocol, will likely transition him to prednisone tomorrow. He has received 2 doses of ivermectin. Heart rate remains low but stable, continue to hold amiodarone. Placement for physical therapy is pending. - Time Time Spent with patient: 15-24 minutes Anticipated [facility]charge [facility]position[facility] Anticipated Discharge Timeframe: when bed available
[2020-05-07] MEDS: ATORVASTATIN CALCIUM 20 MG TABLET PO SCH (21:43)
[2020-05-07] MEDS ORDERED: CALCIUM CARBONATE 500 MG TAB.CHEW PO ONE (23:45)
[2020-05-08] MEDS: LEVOTHYROXINE SODIUM 0.112 MG TABLET PO SCH (05:13)
[2020-05-08] MEDS: PIPERACILLIN SODIUM/TAZOBACTAM 3.375 GM in NORMAL SALINE 100 ML IV SCH ×3 (05:13→22:20)
[2020-05-08 06:59] LABS: C-REACTIVE PROTEIN 50.6 mg/L (<10.0)
[2020-05-08] MEDS: ASPIRIN 81 MG TABLET, ENT COATED PO SCH (09:44)
[2020-05-08] MEDS: LISINOPRIL 5 MG TABLET PO SCH (09:44)
[2020-05-08] MEDS: DOCUSATE SODIUM 100 MG CAPSULE PO SCH (09:45)
[2020-05-08] MEDS: TAMSULOSIN HCL 0.4 MG CAP.SR.24H PO SCH (09:45)
[2020-05-08] MEDS: ASCORBIC ACID 500 MG TABLET PO SCH ×2 (09:45→18:16)
[2020-05-08] MEDS: APIXABAN 2.5 MG TABLET PO SCH ×2 (09:45→18:16)
[2020-05-08] MEDS: CHOLECALCIFEROL (D3) 1,000 UNIT (25 MCG) TABLET PO SCH (09:45)
[2020-05-08] MEDS: PREDNISONE 20 MG TABLET PO SCH (09:45)
[2020-05-08] MEDS: PANTOPRAZOLE SODIUM 40 MG TABLET.DR PO SCH (09:45)
[2020-05-08] MEDS: FUROSEMIDE INJ/PF 20 MG/2 ML SDV IV SCH (09:46)
[2020-05-08] MEDS: UMECLIDINIUM BROMIDE 62.5 MCG/DOSE IH SCH (09:46)
[2020-05-08] MEDS: FINASTERIDE 5 MG TABLET PO SCH (09:47)
[2020-05-08] MEDS: ZINC SULFATE 220 MG CAPSULE PO SCH (09:47)
[2020-05-08] MEDS: IPRATROPIUM/ALBUTEROL 0.5-2.5 MG/3 ML AMPUL NEB PRN ×2 (10:25→16:48)
[2020-05-08 10:37] LABS: VANCOMYCIN,TROUGH 11.1 ug/mL (5.0-20.0)
--- NOTE | 2020-05-08 16:57 | PDOC PROGRESS REPORT ---
Subjective Date:: 05/08/20 Subjective:: No adverse events overnight. No new complaints. Vital signs been stable. He h as been in good spirits. Pain is well controlled. He is eating and drinking without difficulty. Breathing has been stable on room air. Reason For Visit: FALL, HIP FRACTURE Physical Exam Vital Signs: Temp Pulse Resp BP Pulse Ox 98.4 F 48 L 18 136/66 H 92 05/08/20 11:42 05/08/20 16:48 05/08/20 16:48 05/08/20 11:42 05/08/20 11:42 Intake & Output 05/07/20 05/08/20 05/09/20 06:59 06:59 06:59 Intake Total 990 1412 260 Output Total 1675 1925 400 Balance -685 -513 -140 Weight 67.9 kg 66.2 kg 66.2 kg General appearance: PRESENT: no acute distress, cooperative Respiratory exam: PRESENT: decreased breath sounds Cardiovascular exam: PRESENT: RRR. ABSENT: diastolic murmur, rubs, systolic mur mur GI/Abdominal exam: PRESENT: normal bowel sounds, soft. ABSENT: distended, guarding, mass, organolmegaly, rebound, tenderness Extremities exam: PRESENT: full ROM. ABSENT: calf tenderness, clubbing, pedal edema Neurological exam: PRESENT: alert, awake, oriented to person, oriented to place, oriented to time Psychiatric exam: PRESENT: appropriate affect, normal mood. Results Laboratory Results: 05/05/20 08:23 05/08/20 09:39 05/08/20 05/08/20 05:06 09:39 Creatinine 1.48 H Est GFR ( Amer) 55 L Ferritin 356.00 C-Reactive Protein 50.6 H Impressions: Elbow X-Ray 05/01/20 11:53 IMPRESSION: CHRONIC DEGENERATIVE CHANGES. NO RADIOGRAPHIC EVIDENCE OF ACUTE INJURY. Hip X-Ray 05/01/20 11:53 IMPRESSION: MILD DEGENERATIVE CHANGES IN THE HIPS. NO ACUTE TRAUMATIC FINDINGS. POSSIBLE INGUINAL HERNIAS. Femur X-Ray 05/01/20 11:54 IMPRESSION: CHRONIC DEGENERATIVE CHANGES. NO RADIOGRAPHIC EVIDENCE OF ACUTE INJURY. Lumbar Spine X-Ray 05/01/20 11:54 IMPRESSION: DEGENERATIVE DISC DISEASE. NO ACUTE FINDINGS. Head CT 05/01/20 19:32 IMPRESSION: 1. No obvious acute intra-axial abnormalities. 2. Bilateral frontal sinus disease. 3. Very subtle left frontal extra-axial focal fluid and very questionable, seen on only one slice left frontal bone fracture. Both findings may be artifact. Recommend short term follow-up in several hours or as clinically indicated. Abdomen/Pelvis CT 05/01/20 19:33 IMPRESSION: 1. Acute right anterior acetabular fracture with involvement of the right superior and inferior pubic rami. No significant displacement. Mild associated soft tissue thickening. 2. Bilateral inguinal hernia. Herniation of small bowel in the right and sigmoid colon the left. There is colonic dilatation possibly related to the left inguinal hernia. 3. Diffuse atherosclerotic disease. 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 Greater stenosis of both common femoral arteries greater on the right. 4. Cardiomegaly mainly dilatation of the right and left atria. Bibasilar mildly nodular infiltrates greater on the right acute versus chronic. Viral pneumonia not excluded. Chest X-Ray 05/03/20 00:00 IMPRESSION: Extensive bilateral interstitial airspace disease most marked in the right upper lobe. Chest/Abdomen CTA 05/04/20 00:00 IMPRESSION: 1. Bilateral ground-glass infiltrates as described. These i nfiltrates are more diffuse in the right lung than is usually seen with COVID-19 pneumonia. May indicate chronic interstitial changes or interstitial edema. However, cannot exclude COVID-19 pneumonia. 2. Limited consolidation in both lower lobes posteriorly, atelectasis versus pneumonia. Assessment and Plan - Diagnosis (1) Hip fracture, right Qualifiers: Encounter type: initial encounter Is this a current diagnosis for this admission?: Yes (2) COVID-19 Is this a current diagnosis for this admission?: Yes (3) Atrial fibrillation Qualifiers: Atrial fibrillation type: permanent Qualified Code(s): I48.21 - Permanent atrial fibrillation Is this a current diagnosis for this admission?: Yes (4) BPH (benign prostatic hyperplasia) Qualifiers: Lower urinary tract symptom presence: symptoms absent Qualified Code(s): N40.0 - Benign prostatic hyperplasia without lower urinary tract symptoms Is this a current diagnosis for this admission?: Yes (5) COPD (chronic obstructive pulmonary disease) Qualifiers: COPD type: emphysema Emphysema type: centrilobular Qualified Code(s): J43.2 - Centrilobular emphysema Is this a current diagnosis for this admission?: Yes (6) Hyperlipemia Is this a current diagnosis for this admission?: Yes (7) Hypertension Is this a current diagnosis for this admission?: Yes - Plan Summary Summary: Conservative treatment for his nondisplaced hip fracture. He is receiving the MATH+ protocol with good effect. Breathing is stable on room air. He has been transitioned to prednisone. He has received 2 doses of ivermectin. Heart rate remains low but stable, continue to hold amiodarone. Placement for physical therapy is pending. - Time Time Spent with patient: 15-24 minutes Anticipated Discharge Disposition: Senior Living Facility Anticipated Discharge Timeframe: when bed available
[2020-05-08] MEDS: TEMAZEPAM 7.5 MG CAPSULE PO PRN (22:19)
[2020-05-08] MEDS: OXYCODONE-ACETAMINOPHEN 5-325 MG TABLET PO PRN (22:19)
[2020-05-08] MEDS: ATORVASTATIN CALCIUM 20 MG TABLET PO SCH (22:19)
[2020-05-09] MEDS: PIPERACILLIN SODIUM/TAZOBACTAM 3.375 GM in NORMAL SALINE 100 ML IV SCH ×3 (05:56→22:16)
[2020-05-09] MEDS: LEVOTHYROXINE SODIUM 0.112 MG TABLET PO SCH (05:56)
[2020-05-09 06:44] LABS: C-REACTIVE PROTEIN 43.5 mg/L (<10.0)
[2020-05-09] MEDS: IPRATROPIUM/ALBUTEROL 0.5-2.5 MG/3 ML AMPUL NEB PRN ×2 (09:27→20:40)
[2020-05-09] MEDS: CHOLECALCIFEROL (D3) 1,000 UNIT (25 MCG) TABLET PO SCH (10:19)
[2020-05-09] MEDS: APIXABAN 2.5 MG TABLET PO SCH ×2 (10:20→17:15)
[2020-05-09] MEDS: ASPIRIN 81 MG TABLET, ENT COATED PO SCH (10:20)
[2020-05-09] MEDS: PANTOPRAZOLE SODIUM 40 MG TABLET.DR PO SCH (10:20)
[2020-05-09] MEDS: TAMSULOSIN HCL 0.4 MG CAP.SR.24H PO SCH (10:20)
[2020-05-09] MEDS: ASCORBIC ACID 500 MG TABLET PO SCH ×2 (10:20→17:15)
[2020-05-09] MEDS: DOCUSATE SODIUM 100 MG CAPSULE PO SCH (10:21)
[2020-05-09] MEDS: PREDNISONE 20 MG TABLET PO SCH (10:21)
[2020-05-09] MEDS: LISINOPRIL 5 MG TABLET PO SCH (10:21)
[2020-05-09] MEDS: FUROSEMIDE INJ/PF 20 MG/2 ML SDV IV SCH (10:22)
[2020-05-09] MEDS: FINASTERIDE 5 MG TABLET PO SCH (10:23)
[2020-05-09] MEDS: ZINC SULFATE 220 MG CAPSULE PO SCH (10:24)
[2020-05-09] MEDS: UMECLIDINIUM BROMIDE 62.5 MCG/DOSE IH SCH (10:24)
--- NOTE | 2020-05-09 16:22 | PDOC PROGRESS REPORT ---
Subjective Date:: 05/09/20 Subjective:: No adverse events overnight. No new complaints. Vital signs been stable. He s till doing very well on room air. Pain is well controlled. He has been getting physical therapy. Reason For Visit: FALL, HIP FRACTURE Physical Exam Vital Signs: Temp Pulse Resp BP Pulse Ox 97.7 F 47 L 18 104/66 94 05/09/20 16:02 05/09/20 16:02 05/09/20 16:02 05/09/20 16:02 05/09/20 16:02 Intake & Output 05/08/20 05/09/20 05/10/20 06:59 06:59 06:59 Intake Total 1412 1125 Output Total 1925 1375 Balance -513 -250 Weight 66.2 kg 70.4 kg General appearance: PRESENT: no acute distress, cooperative Respiratory exam: PRESENT: decreased breath sounds Cardiovascular exam: PRESENT: RRR. ABSENT: diastolic murmur, rubs, systolic murmur GI/Abdominal exam: PRESENT: normal bowel sounds, soft. ABSENT: distended, guarding, mass, organolmegaly, rebound, tenderness Extremities exam: PRESENT: full ROM. ABSENT: calf tenderness, clubbing, pedal edema Neurological exam: PRESENT: alert, awake, oriented to person, oriented to place, oriented to time Psychiatric exam: PRESENT: appropriate affect, normal mood. Results Laboratory Results: 05/05/20 08:23 05/08/20 09:39 05/09/20 05:30 Ferritin 371.00 C-Reactive Protein 43.5 H Impressions: Elbow X-Ray 05/01/20 11:53 IMPRESSION: CHRONIC DEGENERATIVE CHANGES. NO RADIOGRAPHIC EVIDENCE OF ACUTE INJURY. Hip X-Ray 05/01/20 11:53 IMPRESSION: MILD DEGENERATIVE CHANGES IN THE HIPS. NO ACUTE TRAUMATIC FINDINGS. POSSIBLE INGUINAL HERNIAS. Femur X-Ray 05/01/20 11:54 IMPRESSION: CHRONIC DEGENERATIVE CHANGES. NO RADIOGRAPHIC EVIDENCE OF ACUTE INJURY. Lumbar Spine X-Ray 05/01/20 11:54 IMPRESSION: DEGENERATIVE DISC DISEASE. NO ACUTE FINDINGS. Head CT 05/01/20 19:32 IMPRESSION: 1. No obvious acute intra-axial abnormalities. 2. Bilateral frontal sinus disease. 3. Very subtle left frontal extra-axial focal fluid and very questionable, seen on only one slice left frontal bone fracture. Both findings may be artifact. Recommend short term follow-up in several hours or as clinically indicated. Abdomen/Pelvis CT 05/01/20 19:33 IMPRESSION: 1. Acute right anterior acetabular fracture with involvement of the right superior and inferior pubic rami. No significant displacement. Mild associated soft tissue thickening. 2. Bilateral inguinal hernia. Herniation of small bowel in the right and sigmoid colon the left. There is colonic dilatation possibly related to the left inguinal hernia. 3. Diffuse atherosclerotic disease. 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 Greater stenosis of both common femoral arteries greater on the right. 4. Cardiomegaly mainly dilatation of the right and left atria. Bibasilar mildly nodular infiltrates greater on the right acute versus chronic. Viral pneumonia not excluded. Chest X-Ray 05/03/20 00:00 IMPRESSION: Extensive bilateral interstitial airspace disease most marked in the right upper lobe. Chest/Abdomen CTA 05/04/20 00:00 IMPRESSION: 1. Bilateral ground-glass infiltrates as described. These infiltrates are more diffuse in the right lung than is usually seen with COVID- 19 pneumonia. May indicate chronic interstitial changes or interstitial edema. However, cannot exclude COVID-19 pneumonia. 2. Limited consolidation in both lower lobes posteriorly, atelectasis versus pneumonia. Assessment and Plan - Diagnosis (1) Hip fracture, right Qualifiers: Encounter type: initial encounter Is this a current diagnosis for this admission?: Yes (2) COVID-19 Is this a current diagnosis for this admission?: Yes (3) Atrial fibrillation Qualifiers: Atrial fibrillation type: permanent Qualified Code(s): I48.21 - Permanent atrial fibrillation Is this a current diagnosis for this admission?: Yes (4) BPH (benign prostatic hyperplasia) Qualifiers: Lower urinary tract symptom presence: symptoms absent Qualified Code(s): N40.0 - Benign prostatic hyperplasia without lower urinary tract symptoms Is this a current diagnosis for this admission?: Yes (5) COPD (chronic obstructive pulmonary disease) Qualifiers: COPD type: emphysema Emphysema type: centrilobular Qualified Code(s): J43.2 - Centrilobular emphysema Is this a current diagnosis for this admission?: Yes (6) Hyperlipemia Is this a current diagnosis for this admission?: Yes (7) Hypertension Is this a current diagnosis for this admission?: Yes - Plan Summary Summary: Conservative treatment for his nondisplaced hip fracture. He is receiving the MATH+ protocol with good effect. Breathing is stable on room air. He has been transitioned to prednisone. He has received 2 doses of ivermectin. Heart rate remains low but stable, continue to hold amiodarone. Placement for physical therapy is pending. - Time Time Spent with patient: 15-24 minutes Anticipated Discharge Disposition: Longterm Facility Anticipated Discharge Timeframe: when bed available
[2020-05-09] MEDS: ATORVASTATIN CALCIUM 20 MG TABLET PO SCH (22:16)
[2020-05-10] MEDS: LEVOTHYROXINE SODIUM 0.112 MG TABLET PO SCH (05:56)
[2020-05-10] MEDS: PIPERACILLIN SODIUM/TAZOBACTAM 3.375 GM in NORMAL SALINE 100 ML IV SCH (05:56)
[2020-05-10 07:23] LABS: C-REACTIVE PROTEIN 46.4 mg/L (<10.0)
[2020-05-10] MEDS: PANTOPRAZOLE SODIUM 40 MG TABLET.DR PO SCH (08:05)
[2020-05-10] MEDS: FUROSEMIDE INJ/PF 20 MG/2 ML SDV IV SCH (09:20)
[2020-05-10] MEDS: TAMSULOSIN HCL 0.4 MG CAP.SR.24H PO SCH (09:21)
[2020-05-10] MEDS: CHOLECALCIFEROL (D3) 1,000 UNIT (25 MCG) TABLET PO SCH (09:21)
[2020-05-10] MEDS: APIXABAN 2.5 MG TABLET PO SCH ×2 (09:21→17:18)
[2020-05-10] MEDS: LISINOPRIL 5 MG TABLET PO SCH (09:21)
[2020-05-10] MEDS: ASPIRIN 81 MG TABLET, ENT COATED PO SCH (09:21)
[2020-05-10] MEDS: FINASTERIDE 5 MG TABLET PO SCH (09:21)
[2020-05-10] MEDS: PREDNISONE 20 MG TABLET PO SCH (09:21)
[2020-05-10] MEDS: DOCUSATE SODIUM 100 MG CAPSULE PO SCH (09:21)
[2020-05-10] MEDS: ASCORBIC ACID 500 MG TABLET PO SCH ×2 (09:22→17:18)
[2020-05-10] MEDS: UMECLIDINIUM BROMIDE 62.5 MCG/DOSE IH SCH (09:27)
[2020-05-10] MEDS: ZINC SULFATE 220 MG CAPSULE PO SCH (10:00)
[2020-05-10] MEDS: IPRATROPIUM/ALBUTEROL 0.5-2.5 MG/3 ML AMPUL NEB PRN ×2 (10:45→23:32)
--- NOTE | 2020-05-10 17:21 | PDOC PROGRESS REPORT ---
Subjective Date:: 05/10/20 Subjective:: No adverse events overnight. No new complaints. Vital signs been stable. Eati ng and drinking without difficulty. Oxygen saturations on room air in the mid to upper 90s. Reason For Visit: FALL, HIP FRACTURE Physical Exam Vital Signs: Temp Pulse Resp BP Pulse Ox 97.1 F 51 L 18 102/68 98 05/10/20 15:34 05/10/20 15:34 05/10/20 15:34 05/10/20 15:34 05/10/20 15:34 Intake & Output 05/09/20 05/10/20 05/11/20 06:59 06:59 06:59 Intake Total 1125 1120 240 Output Total 1375 1930 1000 Balance -250 -810 -760 Weight 70.4 kg 69.4 kg General appearance: PRESENT: no acute distress, cooperative Respiratory exam: PRESENT: decreased breath sounds Cardiovascular exam: PRESENT: RRR. ABSENT: diastolic murmur, rubs, systolic murmur GI/Abdominal exam: PRESENT: normal bowel sounds, soft. ABSENT: distended, guarding, mass, organolmegaly, rebound, tenderness Extremities exam: PRESENT: full ROM. ABSENT: calf tenderness, clubbing, pedal edema Neurological exam: PRESENT: alert, awake, oriented to person, oriented to place, oriented to time Psychiatric exam: PRESENT: appropriate affect, normal mood. Results Laboratory Results: 05/05/20 08:23 05/08/20 09:39 05/10/20 05:30 Ferritin 346.00 C-Reactive Protein 46.4 H Impressions: Elbow X-Ray 05/01/20 11:53 IMPRESSION: CHRONIC DEGENERATIVE CHANGES. NO RADIOGRAPHIC EVIDENCE OF ACUTE INJURY. Hip X-Ray 05/01/20 11:53 IMPRESSION: MILD DEGENERATIVE CHANGES IN THE HIPS. NO ACUTE TRAUMATIC FINDIN GS. POSSIBLE INGUINAL HERNIAS. Femur X-Ray 05/01/20 11:54 IMPRESSION: CHRONIC DEGENERATIVE CHANGES. NO RADIOGRAPHIC EVIDENCE OF ACUTE INJURY. Lumbar Spine X-Ray 05/01/20 11:54 IMPRESSION: DEGENERATIVE DISC DISEASE. NO ACUTE FINDINGS. Head CT 05/01/20 19:32 IMPRESSION: 1. No obvious acute intra-axial abnormalities. 2. Bilateral frontal sinus disease. 3. Very subtle left frontal extra-axial focal fluid and very questionable, seen on only one slice left frontal bone fracture. Both findings may be artifact. Recommend short term follow-up in several hours or as clinically indicated. Abdomen/Pelvis CT 05/01/20 19:33 IMPRESSION: 1. Acute right anterior acetabular fracture with involvement of the right superior and inferior pubic rami. No significant displacement. Mild associated soft tissue thickening. 2. Bilateral inguinal hernia. Herniation of small bowel in the right and sigmoid colon the left. There is colonic dilatation possibly related to the left inguinal hernia. 3. Diffuse atherosclerotic disease. 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 Greater stenosis of both common femoral arteries greater on the right. 4. Cardiomegaly mainly dilatation of the right and left atria. Bibasilar mildly nodular infiltrates greater on the right acute versus chronic. Viral pneumonia not excluded. Chest X-Ray 05/03/20 00:00 IMPRESSION: Extensive bilateral interstitial airspace disease most marked in the right upper lobe. Chest/Abdomen CTA 05/04/20 00:00 IMPRESSION: 1. Bilateral ground-glass infiltrates as described. These infiltrates are more diffuse in the right lung than is usually seen with COVID- 19 pneumonia. May indicate chronic interstitial changes or interstitial edema. However, cannot exclude COVID-19 pneumonia. 2. Limited consolidation in both lower lobes posteriorly, atelectasis versus pneumonia. Assessment and Plan - Diagnosis (1) Hip fracture, right Qualifiers: Encounter type: initial encounter Is this a current diagnosis for this admission?: Yes (2) COVID-19 Is this a current diagnosis for this admission?: Yes (3) Atrial fibrillation Qualifiers: Atrial fibrillation type: permanent Qualified Code(s): I48.21 - Permanent atrial fibrillation Is this a current diagnosis for this admission?: Yes (4) BPH (benign prostatic hyperplasia) Qualifiers: Lower urinary tract symptom presence: symptoms absent Qualified Code(s): N40.0 - Benign prostatic hyperplasia without lower urinary tract symptoms Is this a current diagnosis for this admission?: Yes (5) COPD (chronic obstructive pulmonary disease) Qualifiers: COPD type: emphysema Emphysema type: centrilobular Qualified Code(s): J43.2 - Centrilobular emphysema Is this a current diagnosis for this admission?: Yes (6) Hyperlipemia Is this a current diagnosis for this admission?: Yes (7) Hypertension Is this a current diagnosis for this admission?: Yes - Plan Summary Summary: Conservative treatment for his nondisplaced hip fracture. He is receiving the MATH+ protocol with good effect. Breathing is stable on room air. He has been transitioned to prednisone, will gradually taper dosage. He has received 2 doses of ivermectin. Heart rate remains low but stable, continue to hold amiodarone. Placement for physical therapy is pending. - Time Time Spent with patient: 15-24 minutes Anticipated Discharge Disposition: [facility] Anticipated Discharge Timeframe: when bed available
[2020-05-10] MEDS: ATORVASTATIN CALCIUM 20 MG TABLET PO SCH (23:21)
[2020-05-11] MEDS: LEVOTHYROXINE SODIUM 0.112 MG TABLET PO SCH (06:49)
[2020-05-11 07:22] LABS: C-REACTIVE PROTEIN 33.7 mg/L (<10.0)
[2020-05-11] MEDS: PANTOPRAZOLE SODIUM 40 MG TABLET.DR PO SCH (07:32)
[2020-05-11] MEDS: ASCORBIC ACID 500 MG TABLET PO SCH ×2 (11:46→18:12)
[2020-05-11] MEDS: PREDNISONE 20 MG TABLET PO SCH (11:46)
[2020-05-11] MEDS: APIXABAN 2.5 MG TABLET PO SCH ×2 (11:47→18:12)
[2020-05-11] MEDS: DOCUSATE SODIUM 100 MG CAPSULE PO SCH (11:47)
[2020-05-11] MEDS: LISINOPRIL 5 MG TABLET PO SCH (11:47)
[2020-05-11] MEDS: TAMSULOSIN HCL 0.4 MG CAP.SR.24H PO SCH (11:47)
[2020-05-11] MEDS: FUROSEMIDE INJ/PF 20 MG/2 ML SDV IV SCH (11:47)
[2020-05-11] MEDS: ASPIRIN 81 MG TABLET, ENT COATED PO SCH (11:47)
[2020-05-11] MEDS: FINASTERIDE 5 MG TABLET PO SCH (11:48)
[2020-05-11] MEDS: CHOLECALCIFEROL (D3) 1,000 UNIT (25 MCG) TABLET PO SCH (11:52)
[2020-05-11] MEDS: UMECLIDINIUM BROMIDE 62.5 MCG/DOSE IH SCH (11:53)
[2020-05-11] MEDS: ZINC SULFATE 220 MG CAPSULE PO SCH (11:54)
[2020-05-11] MEDS: ACETAMINOPHEN 325 MG TABLET PO PRN (14:03)
--- NOTE | 2020-05-11 15:33 | PDOC PROGRESS REPORT ---
Subjective Date:: 05/11/20 Subjective:: No adverse events overnight. At some point overnight he was put on 2 L of oxyge n, I am not sure why. When I came in the room the nasal cannula was only in 1 nostril and it was hanging out usp. Like that, his saturations were in the upper 90s. I stopped his oxygen and took the cannula out of his nose, then talked to him for a few minutes, left the room and came back, and his saturations were 97%. Reason For Visit: FALL, HIP FRACTURE Physical Exam Vital Signs: Temp Pulse Resp BP Pulse Ox 97.4 F 60 16 125/56 L 97 05/11/20 11:45 05/11/20 12:39 05/11/20 12:39 05/11/20 11:45 05/11/20 12:39 Intake & Output 05/10/20 05/11/20 05/12/20 06:59 06:59 06:59 Intake Total 1120 620 Output Total 1930 1550 Balance -810 -930 Weight 69.4 kg 67.7 kg General appearance: PRESENT: no acute distress, cooperative Respiratory exam: PRESENT: decreased breath sounds Cardiovascular exam: PRESENT: RRR. ABSENT: diastolic murmur, rubs, systolic murmur GI/Abdominal exam: PRESENT: normal bowel sounds, soft. ABSENT: distended, guarding, mass, organolmegaly, rebound, tenderness Extremities exam: PRESENT: full ROM. ABSENT: calf tenderness, clubbing, pedal edema Neurological exam: PRESENT: alert, awake, oriented to person, oriented to place, oriented to time Psychiatric exam: PRESENT: appropriate affect, normal mood. Results Laboratory Results: 05/05/20 08:23 05/08/20 09:39 05/11/20 06:01 Ferritin 342.00 C-Reactive Protein 33.7 H Impressions: Elbow X-Ray 05/01/20 11:53 IMPRESSION: CHRONIC DEGENERATIVE CHANGES. NO RADIOGRAPHIC EVIDENCE OF ACUTE INJURY. Hip X-Ray 05/01/20 11:53 IMPRESSION: MILD DEGENERATIVE CHANGES IN THE HIPS. NO ACUTE TRAUMATIC FINDINGS. POSSIBLE INGUINAL HERNIAS. Femur X-Ray 05/01/20 11:54 IMPRESSION: CHRONIC DEGENERATIVE CHANGES. NO RADIOGRAPHIC EVIDENCE OF ACUTE INJURY. Lumbar Spine X-Ray 05/01/20 11:54 IMPRESSION: DEGENERATIVE DISC DISEASE. NO ACUTE FINDINGS. Head CT 12/28/20 19:32 IMPRESSION: 1. No obvious acute intra-axial abnormalities. 2. Bilateral frontal sinus disease. 3. Very subtle left frontal extra-axial focal fluid and very questionable, seen on only one slice left frontal bone fracture. Both findings may be artifact. Recommend short term follow-up in several hours or as clinically indicated. Abdomen/Pelvis CT 05/01/20 19:33 IMPRESSION: 1. Acute right anterior acetabular fracture with involvement of the right superior and inferior pubic rami. No significant displacement. Mild associated soft tissue thickening. 2. Bilateral inguinal hernia. Herniation of small bowel in the right and sigmoid colon the left. There is colonic dilatation possibly related to the left inguinal hernia. 3. Diffuse atherosclerotic disease. 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 Greater stenosis of both common femoral arteries greater on the right. 4. Cardiomegaly mainly dilatation of the right and left atria. Bibasilar mildly nodular infiltrates greater on the right acute versus chronic. Viral pneumonia not excluded. Chest X-Ray 05/03/20 00:00 IMPRESSION: Extensive bilateral interstitial airspace disease most marked in the right upper lobe. Chest/Abdomen CTA 05/04/20 00:00 IMPRESSION: 1. Bilateral ground-glass infiltrates as described. These i nfiltrates are more diffuse in the right lung than is usually seen with COVID-19 pneumonia. May indicate chronic interstitial changes or interstitial edema. However, cannot exclude COVID-19 pneumonia. 2. Limited consolidation in both lower lobes posteriorly, atelectasis versus pneumonia. Assessment and Plan - Diagnosis (1) Hip fracture, right Qualifiers: Encounter type: initial encounter Is this a current diagnosis for this admission?: Yes (2) COVID-19 Is this a current diagnosis for this admission?: Yes (3) Atrial fibrillation Qualifiers: Atrial fibrillation type: permanent Qualified Code(s): I48.21 - Permanent atrial fibrillation Is this a current diagnosis for this admission?: Yes (4) BPH (benign prostatic hyperplasia) Qualifiers: Lower urinary tract symptom presence: symptoms absent Qualified Code(s): N40.0 - Benign prostatic hyperplasia without lower urinary tract symptoms Is this a current diagnosis for this admission?: Yes (5) COPD (chronic obstructive pulmonary disease) Qualifiers: COPD type: emphysema Emphysema type: centrilobular Qualified Code(s): J43.2 - Centrilobular emphysema Is this a current diagnosis for this admission?: Yes (6) Hyperlipemia Is this a current diagnosis for this admission?: Yes (7) Hypertension Is this a current diagnosis for this admission?: Yes - Plan Summary Summary: Conservative treatment for his nondisplaced hip fracture. He is receiving the MATH+ protocol with good effect. Breathing is stable on room air. He has been transitioned to prednisone, will gradually taper dosage. He has received 2 doses of ivermectin. Heart rate remains low but stable, continue to hold amiodarone. Placement for physical therapy is pending. - Time Time Spent with patient: 15-24 minutes Anticipated Discharge Disposition: [facility] Facility Anticipated Discharge Timeframe: when bed available
[2020-05-11] MEDS: ATORVASTATIN CALCIUM 20 MG TABLET PO SCH (21:17)
[2020-05-11] MEDS: IPRATROPIUM/ALBUTEROL 0.5-2.5 MG/3 ML AMPUL NEB PRN (21:22)
[2020-05-12] MEDS: LEVOTHYROXINE SODIUM 0.112 MG TABLET PO SCH (05:19)
[2020-05-12 07:20] LABS: C-REACTIVE PROTEIN 42.1 mg/L (<10.0)
[2020-05-12] MEDS: APIXABAN 2.5 MG TABLET PO SCH (10:15)
[2020-05-12] MEDS: ASCORBIC ACID 500 MG TABLET PO SCH (10:15)
[2020-05-12] MEDS: TAMSULOSIN HCL 0.4 MG CAP.SR.24H PO SCH (10:15)
[2020-05-12] MEDS: LISINOPRIL 5 MG TABLET PO SCH (10:15)
[2020-05-12] MEDS: PREDNISONE 20 MG TABLET PO SCH (10:15)
[2020-05-12] MEDS: FINASTERIDE 5 MG TABLET PO SCH (10:15)
[2020-05-12] MEDS: PANTOPRAZOLE SODIUM 40 MG TABLET.DR PO SCH (10:16)
[2020-05-12] MEDS: DOCUSATE SODIUM 100 MG CAPSULE PO SCH (10:16)
[2020-05-12] MEDS: CHOLECALCIFEROL (D3) 1,000 UNIT (25 MCG) TABLET PO SCH (10:16)
[2020-05-12] MEDS: FUROSEMIDE INJ/PF 20 MG/2 ML SDV IV SCH (10:16)
[2020-05-12] MEDS: ASPIRIN 81 MG TABLET, ENT COATED PO SCH (10:16)
[2020-05-12] MEDS: UMECLIDINIUM BROMIDE 62.5 MCG/DOSE IH SCH (10:16)
--- NOTE | 2020-05-12 10:26 | PDOC DISCHARGE SUMMARY ---
Impression - Admit/DC Date/PCP Admission Date/Primary Care Provider: 05/01/20 23:09 CANDIS HER DO Discharge Date: 05/12/20 - Discharge Diagnosis (1) Hip fracture, right Is this a current diagnosis for this admission?: Yes (2) COVID-19 Is this a current diagnosis for this admission?: Yes (3) Atrial fibrillation Is this a current diagnosis for this admission?: Yes (4) BPH (benign prostatic hyperplasia) Is this a current diagnosis for this admission?: Yes (5) COPD (chronic obstructive pulmonary disease) Is this a current diagnosis for this admission?: Yes (6) Hyperlipemia Is this a current diagnosis for this admission?: Yes (7) Hypertension Is this a current diagnosis for this admission?: Yes - Assessment Summary: Conservative treatment for his nondisplaced hip fracture. He is receiving the MATH+ protocol with good effect. Breathing is stable on room air. He has been transitioned to prednisone, will gradually taper dosage. He has received 2 doses of ivermectin. Heart rate remains low but stable, continue to hold amiodarone. Placement for physical therapy is pending. - Additional Information Discharge Diet: Cardiac Discharge Activity: Activity As Tolerated Referrals: CANDIS HER DO [Primary Care Provider] - 05/16/20 2:30 pm Home Medications: Amiodarone HCl [Cordarone 200 mg Tablet] 200 mg PO DAILY 05/02/20 Apixaban [Eliquis 2.5 mg Tablet] 2.5 mg PO BID 05/02/20 Atorvastatin Calcium [Lipitor 20 mg Tablet] 20 mg PO QHS 05/02/20 Finasteride [Proscar 5 mg Tablet] 5 mg PO DAILY 05/02/20 Furosemide [Lasix 20 mg Tablet] 20 mg PO QAM 05/02/20 Ipratropium/Albuterol Sulfate [Duoneb 3 ml Ampul] 3 ml NEB [id number] PRN 05/02/20 Levothyroxine Sodium [Synthroid 0.112 mg Tablet] 112 mcg PO Q6AM 05/02/20 Lisinopril [Prinivil 5 mg Tablet] 5 mg PO DAILY 05/02/20 Pantoprazole Sodium [Protonix [address] Tablet] 40 mg PO QAM 05/02/20 Tamsulosin HCl [Flomax 0.4 mg Cap.sr] 0.4 mg PO DAILY 05/02/20 Tiotropium [place] [Spiriva Handihaler 5 Cap/Kit (18 Mcg/Cap)] 1 cap IH DAILY 05/02/20 History of Present Illiness History of Present Illness: PAT RICHARD is a 84 year old male Physical Exam Vital Signs: Temp Pulse Resp BP Pulse Ox 97.4 F 52 L 18 145/68 H 90 L 05/12/20 07:58 05/12/20 07:58 05/12/20 07:58 05/12/20 07:58 05/12/20 07:58 Intake & Output 05/11/20 05/12/20 05/13/20 06:59 06:59 06:59 Intake Total 620 567 Output Total 1550 300 Balance -930 267 Weight 67.7 kg 70.1 kg Results Laboratory Results: WBC 14.4 10^3/uL (4.0-10.5) H 05/05/20 08:23 RBC 4.14 10^6/uL (4.35-5.55) L 05/05/20 08:23 Hgb 12.5 g/dL (13.5-17.0) L 05/05/20 08:23 Hct 36.8 % (37.9-51.0) L 05/05/20 08:23 MCV 89 fl (80-97) 05/05/20 08:23 MCH 30.1 pg (27.0-33.4) 05/05/20 08:23 MCHC 33.9 g/dL (32.0-36.0) 05/05/20 08:23 RDW 15.4 % (11.5-14.0) H 05/05/20 08:23 Plt Count 197 10^3/uL (150-450) 05/05/20 08:23 Lymph % (Auto) Not Reportable 05/05/20 08:23 [place] % (Auto) Not Reportable 05/05/20 08:23 Eos % (Auto) Not Reportable 05/05/20 08:23 Baso % (Auto) Not Reportable 05/05/20 08:23 Absolute Neuts (auto) Not Reportable 05/05/20 08:23 Absolute Lymphs (auto) Not Reportable 05/05/20 08:23 Absolute Monos (auto) Not Reportable 05/05/20 08:23 Absolute Eos (auto) Not Reportable 05/05/20 08:23 Absolute Basos (auto) Not Reportable 05/05/20 08:23 Total Counted 100 05/05/20 08:23 Seg Neutrophils % Not Reportable 05/05/20 08:23 Seg Neuts % (Manual) 92 % (42-78) H 05/05/20 08:23 Lymphocytes % (Manual) 5 % (13-45) L 05/05/20 08:23 Monocytes % (Manual) 3 % (3-13) 05/05/20 08:23 Eosinophils % (Manual) 0 % (0-6) 05/05/20 08:23 Basophils % (Manual) 0 % (0-2) 05/05/20 08:23 Abs Neuts (Manual) 13.2 10^3/uL (1.7-8.2) H 05/05/20 08:23 Abs Lymphs (Manual) 0.7 10^3/uL (0.5-4.7) 05/05/20 08:23 Abs Monocytes (Manual) 0.4 10^3/uL (0.1-1.4) 05/05/20 08:23 Absolute Eos (Manual) 0.0 10^3/uL (0.0-0.6) 05/05/20 08:23 Abs Basophils (Manual) 0.0 10^3/uL (0.0-0.2) 05/05/20 08:23 Clumped Platelets PRESENT 05/05/20 08:23 Platelet Comment ADEQUATE 05/05/20 08:23 Poikilocytosis SLIGHT 05/05/20 08:23 Anisocytosis SLIGHT 05/05/20 08:23 Ovalocytes SLIGHT 05/05/20 08:23 PT 14.3 SEC (11.4-15.4) 05/03/20 06:12 INR 1.09 05/03/20 06:12 D-Dimer 2.49 ug/mL (0.00-0.50) H 05/12/20 06:23 Sodium 135.9 mmol/L (137-145) L 05/05/20 11:22 Potassium 4.6 mmol/L (3.6-5.0) 05/05/20 11:22 Chloride 104 mmol/L (98-107) 05/05/20 11:22 Carbon Dioxide 22 mmol/L (22-30) 05/05/20 11:22 Anion Gap 10 (5-19) 05/05/20 11:22 BUN 44 mg/dL (7-20) H 05/05/20 11:22 Creatinine 1.48 mg/dL (0.52-1.25) H 05/08/20 09:39 Est GFR ( Amer) 55 (>60) L 05/08/20 09:39 Est GFR (Non-Af Amer) Cancelled 05/05/20 08:23 Est GFR (MDRD) Non-Af 45 (>60) L 05/08/20 09:39 Glucose 139 mg/dL (75-110) H 05/05/20 11:22 POC Glucose 136 mg/dL (70-110) H 05/05/20 23:58 Calcium 8.4 mg/dL (8.4-10.2) 05/05/20 11:22 Phosphorus 3.2 mg/dL (2.5-4.5) 05/03/20 06:12 Magnesium 2.5 mg/dL (1.6-2.3) H 05/05/20 11:22 Ferritin 372.00 ng/mL (17.9-464.0) 05/12/20 06:23 Total Bilirubin 1.1 mg/dL (0.2-1.3) 05/05/20 11:22 Direct Bilirubin 0.4 mg/dL (0.0-0.4) 05/05/20 11:22 Neonat Total Bilirubin Not Reportable 05/05/20 11:22 Neonat Direct Bilirubin Not Reportable 05/05/20 11:22 Neonat Indirect Bili Not Reportable 05/05/20 11:22 AST 97 U/L (17-59) H 05/05/20 11:22 ALT 81 U/L (<50) H 05/05/20 11:22 Alkaline Phosphatase 96 U/L (38-126) 05/05/20 11:22 Lactate Dehydrogenase 398 U/L (120-246) H 05/03/20 15:26 C-Reactive Protein 42.1 mg/L (<10.0) H 05/12/20 06:23 Total Protein 6.3 g/dL (6.3-8.2) 05/05/20 11:22 Albumin 2.9 g/dL (3.5-5.0) L 05/05/20 11:22 EGFR Cancelled 05/05/20 08:23 TSH 2.56 uIU/mL (0.47-4.68) 05/01/20 12:09 Free T4 3.11 ng/dL (0.78-2.19) H 05/01/20 12:09 Urine Color YELLOW 05/01/20 16:04 Urine Appearance SLIGHTLY-CLOUDY 05/01/20 16:04 Urine pH 5.0 (5.0-9.0) 05/01/20 16:04 Ur Specific [place] 1.020 05/01/20 16:04 Urine Protein 30 mg/dL (NEGATIVE) H 05/01/20 16:04 Urine Glucose (UA) NEGATIVE mg/dL (NEGATIVE) 05/01/20 16:04 Urine Ketones NEGATIVE mg/dL (NEGATIVE) 05/01/20 16:04 Urine Blood NEGATIVE (NEGATIVE) 05/01/20 16:04 Urine Nitrite NEGATIVE (NEGATIVE) 05/01/20 16:04 Urine Bilirubin NEGATIVE (NEGATIVE) 05/01/20 16:04 Urine Urobilinogen 4.0 mg/dL (<2.0) H 05/01/20 16:04 Ur Leukocyte Esterase NEGATIVE (NEGATIVE) 05/01/20 16:04 Urine WBC (Auto) 3 /HPF 05/01/20 16:04 Urine RBC (Auto) 1 /HPF 05/01/20 16:04 U Hyaline Cast (Auto) 10 /LPF 05/01/20 16:04 Squamous Epi Cells Auto 1 /HPF 05/01/20 16:04 Urine Mucus (Auto) RARE /LPF 05/01/20 16:04 Urine Ascorbic Acid NEGATIVE (NEGATIVE) 05/01/20 16:04 John Human Metapneumo PCR NOT DETECTED (NOT DETECT) 05/03/20 11:53 Time Trough Drawn 0939 05/08/20 09:39 Vancomycin Trough 11.1 ug/mL (5.0-20.0) 05/08/20 09:39 Adenovirus (PCR) NOT DETECTED (NOT DETECT) 05/03/20 11:53 B. pertussis DNA (PCR) NOT DETECTED (NOT DETECT) 05/03/20 11:53 B.parapertussis DNA PCR NOT DETECTED (NOT DETECT) 05/03/20 11:53 C. pneumoniae DNA (PCR) NOT DETECTED (NOT DETECT) 05/03/20 11:53 Coronavirus OC43 (PCR) NOT DETECTED (NOT DETECT) 05/03/20 11:53 Coronavirus HKU1 (PCR) NOT DETECTED (NOT DETECT) 05/03/20 11:53 Coronavirus 229E (PCR) NOT DETECTED (NOT DETECT) 05/03/20 11:53 Coronavirus NL63 (PCR) NOT DETECTED (NOT DETECT) 05/03/20 11:53 Influenza A (H1) PCR NOT DETECTED (NOT DETECT) 05/03/20 11:53 Influ A (H1N1/09) PCR NOT DETECTED (NOT DETECT) 05/03/20 11:53 Influenza A (H3) PCR NOT DETECTED (NOT DETECT) 05/03/20 11:53 Influenza Type A (PCR) NOT DETECTED (NOT DETECT) 05/03/20 11:53 Influenza Type B (PCR) NOT DETECTED (NOT DETECT) 05/03/20 11:53 M. pneumoniae (PCR) NOT DETECTED (NOT DETECT) 05/03/20 11:53 Parainfluenza 1 (PCR) NOT DETECTED (NOT DETECT) 05/03/20 11:53 Parainfluenza 2 (PCR) NOT DETECTED (NOT DETECT) 05/03/20 11:53 Parainfluenza 3 (PCR) NOT DETECTED (NOT DETECT) 05/03/20 11:53 Parainfluenza 4 (PCR) NOT DETECTED (NOT DETECT) 05/03/20 11:53 RSV (PCR) NOT DETECTED (NOT DETECT) 05/03/20 11:53 Entero/Rhino (PCR) NOT DETECTED (NOT DETECT) 05/03/20 11:53 SARS-CoV-2 (PCR) DETECTED (NOT DETECT) H 05/03/20 11:53 Blood Type O POSITIVE 05/03/20 15:26 Impressions: Elbow X-Ray 05/01/20 11:53 IMPRESSION: CHRONIC DEGENERATIVE CHANGES. NO RADIOGRAPHIC EVIDENCE OF ACUTE INJURY. Hip X-Ray 05/01/20 11:53 IMPRESSION: MILD DEGENERATIVE CHANGES IN THE HIPS. NO ACUTE TRAUMATIC FINDINGS. POSSIBLE INGUINAL HERNIAS. Femur X-Ray 05/01/20 11:54 IMPRESSION: CHRONIC DEGENERATIVE CHANGES. NO RADIOGRAPHIC EVIDENCE OF ACUTE INJURY. Lumbar Spine X-Ray 05/01/20 11:54 IMPRESSION: DEGENERATIVE DISC DISEASE. NO ACUTE FINDINGS. Head CT 05/01/20 19:32 IMPRESSION: 1. No obvious acute intra-axial abnormalities. 2. Bilateral frontal sinus disease. 3. Very subtle left frontal extra-axial focal fluid and very questionable, seen on only one slice left frontal bone fracture. Both findings may be artifact. Recommend short term follow-up in several hours or as clinically indicated. Abdomen/Pelvis CT 05/01/20 19:33 IMPRESSION: 1. Acute right anterior acetabular fracture with involvement of the right superior and inferior pubic rami. No significant displacement. Mild associated soft tissue thickening. 2. Bilateral inguinal hernia. Herniation of small bowel in the right and sigmoid colon the left. There is colonic dilatation possibly related to the left inguinal hernia. 3. Diffuse atherosclerotic disease. 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 Greater stenosis of both common femoral arteries greater on the right. 4. Cardiomegaly mainly dilatation of the right and left atria. Bibasilar mildly nodular infiltrates greater on the right acute versus chronic. Viral pneumonia not excluded. Chest X-Ray 05/03/20 00:00 IMPRESSION: Extensive bilateral interstitial airspace disease most marked in the right upper lobe. Chest/Abdomen CTA 05/04/20 00:00 IMPRESSION: 1. Bilateral ground-glass infiltrates as described. These infiltrates are more diffuse in the right lung than is usually seen with COVID- 19 pneumonia. May indicate chronic interstitial changes or interstitial edema. However, cannot exclude COVID-19 pneumonia. 2. Limited consolidation in both lower lobes posteriorly, atelectasis versus pneumonia.
--- NOTE | 2020-05-12 10:43 | PDOC TRANSFER SUMMARY ---
Impression - Admit/DC Date/PCP Admission Date/Primary Care Provider: 05/01/20 23:09 CANDIS HER DO Discharge Date: 05/12/20 - Discharge Diagnosis (1) Hip fracture, right Is this a current diagnosis for this admission?: Yes (2) COVID-19 Is this a current diagnosis for this admission?: Yes (3) Atrial fibrillation Is this a current diagnosis for this admission?: Yes (4) BPH (benign prostatic hyperplasia) Is this a current diagnosis for this admission?: Yes (5) COPD (chronic obstructive pulmonary disease) Is this a current diagnosis for this admission?: Yes (6) Hyperlipemia Is this a current diagnosis for this admission?: Yes (7) Hypertension Is this a current diagnosis for this admission?: Yes - Assessment Summary: Conservative treatment for his nondisplaced hip fracture. He is receiving the MATH+ protocol with good effect. Breathing is stable on room air. He has been transitioned to prednisone, will gradually taper dosage. He has received 2 doses of ivermectin. Heart rate remains low but stable, continue to hold amiodarone. Placement for physical therapy is pending. - Additional Information Discharge Diet: Cardiac Discharge Activity: Activity As Tolerated Referrals: CANDIS HER DO [Primary Care Provider] - 05/16/20 2:30 pm Prescriptions: Prednisone [Deltasone 10 mg Tablet] 10 mg PO ASDIR PRN #21 tablet PRN Reason: Furosemide [Lasix 40 mg Tablet] 40 mg PO QAM #30 tablet Tramadol HCl [Ultram 50 mg Tablet] 50 mg PO Q6HP PRN #10 tab PRN Reason: Pain Home Medications: Amiodarone HCl [Cordarone 200 mg Tablet] 200 mg PO DAILY 05/02/20 Apixaban [Eliquis 2.5 mg Tablet] 2.5 mg PO BID 05/02/20 Atorvastatin Calcium [Lipitor 20 mg Tablet] 20 mg PO QHS 05/02/20 Finasteride [Proscar 5 mg Tablet] 5 mg PO DAILY 05/02/20 Ipratropium/Albuterol Sulfate [Duoneb 3 ml Ampul] 3 ml NEB RTQ6HP PRN 05/02/20 Levothyroxine Sodium [Synthroid 0.112 mg Tablet] 112 mcg PO Q6AM 05/02/20 Lisinopril [Prinivil 5 mg Tablet] 5 mg PO DAILY 05/02/20 Pantoprazole Sodium [Protonix [address] Tablet] 40 mg PO QAM 05/02/20 Tamsulosin HCl [Flomax 0.4 mg Cap.sr] 0.4 mg PO DAILY 05/02/20 Tiotropium [place] [Spiriva Handihaler 5 Cap/Kit (18 Mcg/Cap)] 1 cap IH DAILY 05/02/20 Ascorbic Acid [Vitamin C 500 mg Tablet] 500 mg PO BID tablet 05/12/20 Aspirin [Ecotrin 81 mg EC Tablet] 81 mg PO DAILY tabec 05/12/20 Cholecalciferol (Vitamin D3) [Vitamin D3 1000 Unit Tablet] 2,000 unit PO DAILY tablet 05/12/20 Furosemide [Lasix 40 mg Tablet] 40 mg PO QAM #30 tablet 05/12/20 Prednisone [Deltasone 10 mg Tablet] 10 mg PO ASDIR PRN #21 tablet 05/12/20 Tramadol HCl [Ultram 50 mg Tablet] 50 mg PO Q6HP PRN #10 tab 05/12/20 Zinc Sulfate [Zinc-220 Capsule] 220 mg PO DAILY capsule 05/12/20 History of Present Illiness History of Present Illness: PAT RICHARD is a 84 year old male Past medical history of atrial fibrillation, hyperlipidemia, hypertension, nonoxygen dependent COPD, who recently moved to [place] from [place]. Patient is brought to ED by EMS after a fall. Patient is accompanied by his daughter who is also the source of history. As per daughter today when patient was trying to get out of the car, he lost his balance and fell to the floor landing on his right hip, before hitting his head to the floor patient's daughter was able to catch him. Patient is stating that before falling down patient felt lightheaded and lost his balance, patient denying any chest pain or palpitation prior to fall, or syncope after a fall. As per family patient has been complaining of dizziness for the last couple of weeks and also noted to have low appetite. Patient does have history of atrial fibrillation but denies any history of CAD, seizure disorder, CVA, prior falls. Patient is stating that he is keeping hydrated but as per daughter who is present in the room is saying that they have noticed him to have low appetite and been sleeping a lot lately. Patient is complaining of right hip pain, sharp, 5/5 on severity scale, worse with movement, and better with staying still, he denies any fever, shortness of breath, chills, chest pain, palpitation, nausea, vomiting, diarrhea, constipation or any urinary symptoms. In ED a stat head CT was negative for any acute abnormalities, hip and femur x- rays did not show any acute abnormalities but CT abdomen and pelvis confirmed acute right anterior acetabular fracture with involvement of the right superior and inferior pubic rami. Orthopedic surgery was consulted and no acute intervention was recommended at this point and recommendation was for patient to be admitted and will be evaluated by orthopedic surgery tomorrow. Hospital Course Hospital Course: Benign hospital course. He was relatively asymptomatic from his Covid. He in fact is on room air at this time. His fracture did not require surgery. He has a history of atrial fibrillation and so he is already on anticoagulation. Physical therapy has begun to work with the patient. The last physical therapy note he is still nonweightbearing on his right leg. [facility] to [facility] physical therapy. Suggest continuing vitamins and supplements. He is on a prednisone taper and his furosemide has been increased to 40 mg daily. Please monitor intake and output as well as occasional serum chemistries. Physical Exam Vital Signs: Temp Pulse Resp BP Pulse Ox 97.4 F 52 L 18 145/68 H 90 L 05/12/20 07:58 05/12/20 07:58 05/12/20 07:58 05/12/20 07:58 05/12/20 07:58 Intake & Output 05/11/20 05/12/20 05/13/20 06:59 06:59 06:59 Intake Total 620 567 Output Total 1550 300 Balance -930 267 Weight 67.7 kg 70.1 kg 70.1 kg General appearance: PRESENT: no acute distress Head exam: PRESENT: atraumatic, normocephalic Mouth exam: PRESENT: moist, tongue midline Respiratory exam: PRESENT: clear to auscultation maddie, symmetrical, unlabored. ABSENT: accessory muscle use, crackles, rales, rhonchi, tachypnea, wheezes Cardiovascular exam: PRESENT: RRR, +S1, +S2 GI/Abdominal exam: PRESENT: normal bowel sounds, soft. ABSENT: tenderness Musculoskeletal exam: ABSENT: ambulatory Neurological exam: PRESENT: alert, awake, oriented to person, oriented to place, oriented to situation, CN II-XII grossly intact. ABSENT: altered Psychiatric exam: PRESENT: appropriate affect. ABSENT: agitated, anxious Results Laboratory Results: WBC 14.4 10^3/uL (4.0-10.5) H 05/05/20 08:23 RBC 4.14 10^6/uL (4.35-5.55) L 05/05/20 08:23 Hgb 12.5 g/dL (13.5-17.0) L 05/05/20 08:23 Hct 36.8 % (37.9-51.0) L 05/05/20 08:23 MCV 89 fl (80-97) 05/05/20 08:23 MCH 30.1 pg (27.0-33.4) 05/05/20 08:23 MCHC 33.9 g/dL (32.0-36.0) 05/05/20 08:23 RDW 15.4 % (11.5-14.0) H 05/05/20 08:23 Plt Count 197 10^3/uL (150-450) 05/05/20 08:23 Lymph % (Auto) Not Reportable 05/05/20 08:23 [place] % (Auto) Not Reportable 05/05/20 08:23 Eos % (Auto) Not Reportable 05/05/20 08:23 Baso % (Auto) Not Reportable 05/05/20 08:23 Absolute Neuts (auto) Not Reportable 05/05/20 08:23 Absolute Lymphs (auto) Not Reportable 05/05/20 08:23 Absolute Monos (auto) Not Reportable 05/05/20 08:23 Absolute Eos (auto) Not Reportable 05/05/20 08:23 Absolute Basos (auto) Not Reportable 05/05/20 08:23 Total Counted 100 05/05/20 08:23 Seg Neutrophils % Not Reportable 05/05/20 08:23 Seg Neuts % (Manual) 92 % (42-78) H 05/05/20 08:23 Lymphocytes % (Manual) 5 % (13-45) L 05/05/20 08:23 Monocytes % (Manual) 3 % (3-13) 05/05/20 08:23 Eosinophils % (Manual) 0 % (0-6) 05/05/20 08:23 Basophils % (Manual) 0 % (0-2) 05/05/20 08:23 Abs Neuts (Manual) 13.2 10^3/uL (1.7-8.2) H 05/05/20 08:23 Abs Lymphs (Manual) 0.7 10^3/uL (0.5-4.7) 05/05/20 08:23 Abs Monocytes (Manual) 0.4 10^3/uL (0.1-1.4) 05/05/20 08:23 Absolute Eos (Manual) 0.0 10^3/uL (0.0-0.6) 05/05/20 08:23 Abs Basophils (Manual) 0.0 10^3/uL (0.0-0.2) 05/05/20 08:23 Clumped Platelets PRESENT 05/05/20 08:23 Platelet Comment ADEQUATE 05/05/20 08:23 Poikilocytosis SLIGHT 05/05/20 08:23 Anisocytosis SLIGHT 05/05/20 08:23 Ovalocytes SLIGHT 05/05/20 08:23 PT 14.3 SEC (11.4-15.4) 05/03/20 06:12 INR 1.09 05/03/20 06:12 D-Dimer 2.49 ug/mL (0.00-0.50) H 05/12/20 06:23 Sodium 135.9 mmol/L (137-145) L 05/05/20 11:22 Potassium 4.6 mmol/L (3.6-5.0) 05/05/20 11:22 Chloride 104 mmol/L (98-107) 05/05/20 11:22 Carbon Dioxide 22 mmol/L (22-30) 05/05/20 11:22 Anion Gap 10 (5-19) 05/05/20 11:22 BUN 44 mg/dL (7-20) H 05/05/20 11:22 Creatinine 1.48 mg/dL (0.52-1.25) H 05/08/20 09:39 Est GFR ( Amer) 55 (>60) L 05/08/20 09:39 Est GFR (Non-Af Amer) Cancelled 05/05/20 08:23 Est GFR (MDRD) Non-Af 45 (>60) L 05/08/20 09:39 Glucose 139 mg/dL (75-110) H 05/05/20 11:22 POC Glucose 136 mg/dL (70-110) H 05/05/20 23:58 Calcium 8.4 mg/dL (8.4-10.2) 05/05/20 11:22 Phosphorus 3.2 mg/dL (2.5-4.5) 05/03/20 06:12 Magnesium 2.5 mg/dL (1.6-2.3) H 05/05/20 11:22 Ferritin 372.00 ng/mL (17.9-464.0) 05/12/20 06:23 Total Bilirubin 1.1 mg/dL (0.2-1.3) 05/05/20 11:22 Direct Bilirubin 0.4 mg/dL (0.0-0.4) 05/05/20 11:22 Neonat Total Bilirubin Not Reportable 05/05/20 11:22 Neonat Direct Bilirubin Not Reportable 05/05/20 11:22 Neonat Indirect Bili Not Reportable 05/05/20 11:22 AST 97 U/L (17-59) H 05/05/20 11:22 ALT 81 U/L (<50) H 05/05/20 11:22 Alkaline Phosphatase 96 U/L (38-126) 05/05/20 11:22 Lactate Dehydrogenase 398 U/L (120-246) H 05/03/20 15:26 C-Reactive Protein 42.1 mg/L (<10.0) H 05/12/20 06:23 Total Protein 6.3 g/dL (6.3-8.2) 05/05/20 11:22 Albumin 2.9 g/dL (3.5-5.0) L 05/05/20 11:22 EGFR Cancelled 05/05/20 08:23 TSH 2.56 uIU/mL (0.47-4.68) 05/01/20 12:09 Free T4 3.11 ng/dL (0.78-2.19) H 05/01/20 12:09 Urine Color YELLOW 05/01/20 16:04 Urine Appearance SLIGHTLY-CLOUDY 05/01/20 16:04 Urine pH 5.0 (5.0-9.0) 05/01/20 16:04 Ur Specific [place] 1.020 05/01/20 16:04 Urine Protein 30 mg/dL (NEGATIVE) H 05/01/20 16:04 Urine Glucose (UA) NEGATIVE mg/dL (NEGATIVE) 05/01/20 16:04 Urine Ketones NEGATIVE mg/dL (NEGATIVE) 05/01/20 16:04 Urine Blood NEGATIVE (NEGATIVE) 05/01/20 16:04 Urine Nitrite NEGATIVE (NEGATIVE) 05/01/20 16:04 Urine Bilirubin NEGATIVE (NEGATIVE) 05/01/20 16:04 Urine Urobilinogen 4.0 mg/dL (<2.0) H 05/01/20 16:04 Ur Leukocyte Esterase NEGATIVE (NEGATIVE) 05/01/20 16:04 Urine WBC (Auto) 3 /HPF 05/01/20 16:04 Urine RBC (Auto) 1 /HPF 05/01/20 16:04 U Hyaline Cast (Auto) 10 /LPF 05/01/20 16:04 Squamous Epi Cells Auto 1 /HPF 05/01/20 16:04 Urine Mucus (Auto) RARE /LPF 05/01/20 16:04 Urine Ascorbic Acid NEGATIVE (NEGATIVE) 05/01/20 16:04 John Human Metapneumo PCR NOT DETECTED (NOT DETECT) 05/03/20 11:53 Time Trough Drawn 0939 05/08/20 09:39 Vancomycin Trough 11.1 ug/mL (5.0-20.0) 05/08/20 09:39 Adenovirus (PCR) NOT DETECTED (NOT DETECT) 05/03/20 11:53 B. pertussis DNA (PCR) NOT DETECTED (NOT DETECT) 05/03/20 11:53 B.parapertussis DNA PCR NOT DETECTED (NOT DETECT) 05/03/20 11:53 C. pneumoniae DNA (PCR) NOT DETECTED (NOT DETECT) 05/03/20 11:53 Coronavirus OC43 (PCR) NOT DETECTED (NOT DETECT) 05/03/20 11:53 Coronavirus HKU1 (PCR) NOT DETECTED (NOT DETECT) 05/03/20 11:53 Coronavirus 229E (PCR) NOT DETECTED (NOT DETECT) 05/03/20 11:53 Coronavirus NL63 (PCR) NOT DETECTED (NOT DETECT) 05/03/20 11:53 Influenza A (H1) PCR NOT DETECTED (NOT DETECT) 05/03/20 11:53 Influ A (H1N1/09) PCR NOT DETECTED (NOT DETECT) 05/03/20 11:53 Influenza A (H3) PCR NOT DETECTED (NOT DETECT) 05/03/20 11:53 Influenza Type A (PCR) NOT DETECTED (NOT DETECT) 05/03/20 11:53 Influenza Type B (PCR) NOT DETECTED (NOT DETECT) 05/03/20 11:53 M. pneumoniae (PCR) NOT DETECTED (NOT DETECT) 05/03/20 11:53 Parainfluenza 1 (PCR) NOT DETECTED (NOT DETECT) 05/03/20 11:53 Parainfluenza 2 (PCR) NOT DETECTED (NOT DETECT) 05/03/20 11:53 Parainfluenza 3 (PCR) NOT DETECTED (NOT DETECT) 05/03/20 11:53 Parainfluenza 4 (PCR) NOT DETECTED (NOT DETECT) 05/03/20 11:53 RSV (PCR) NOT DETECTED (NOT DETECT) 05/03/20 11:53 Entero/Rhino (PCR) NOT DETECTED (NOT DETECT) 05/03/20 11:53 SARS-CoV-2 (PCR) DETECTED (NOT DETECT) H 05/03/20 11:53 Blood Type O POSITIVE 05/03/20 15:26 Impressions: Elbow X-Ray 05/01/20 11:53 IMPRESSION: CHRONIC DEGENERATIVE CHANGES. NO RADIOGRAPHIC EVIDENCE OF ACUTE INJURY. Hip X-Ray 05/01/20 11:53 IMPRESSION: MILD DEGENERATIVE CHANGES IN THE HIPS. NO ACUTE TRAUMATIC FINDINGS. POSSIBLE INGUINAL HERNIAS. Femur X-Ray 05/01/20 11:54 IMPRESSION: CHRONIC DEGENERATIVE CHANGES. NO RADIOGRAPHIC EVIDENCE OF ACUTE INJURY. Lumbar Spine X-Ray 05/01/20 11:54 IMPRESSION: DEGENERATIVE DISC DISEASE. NO ACUTE FINDINGS. Head CT 05/01/20 19:32 IMPRESSION: 1. No obvious acute intra-axial abnormalities. 2. Bilateral frontal sinus disease. 3. Very subtle left frontal extra-axial focal fluid and very questionable, seen on only one slice left frontal bone fracture. Both findings may be artifact. Recommend short term follow-up in several hours or as clinically indicated. Abdomen/Pelvis CT 05/01/20 19:33 IMPRESSION: 1. Acute right anterior acetabular fracture with involvement of the right superior and inferior pubic rami. No significant displacement. Mild associated soft tissue thickening. 2. Bilateral inguinal hernia. Herniation of small bowel in the right and sigmoid colon the left. There is colonic dilatation possibly related to the left inguinal hernia. 3. Diffuse atherosclerotic disease. 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 Greater stenosis of both common femoral arteries greater on the right. 4. Cardiomegaly mainly dilatation of the right and left atria. Bibasilar mildly nodular infiltrates greater on the right acute versus chronic. Viral pneumonia not excluded. Chest X-Ray 05/03/20 00:00 IMPRESSION: Extensive bilateral interstitial airspace disease most marked in the right upper lobe. Chest/Abdomen CTA 05/04/20 00:00 IMPRESSION: 1. Bilateral ground-glass infiltrates as described. These infiltrates are more diffuse in the right lung than is usually seen with COVID- 19 pneumonia. May indicate chronic interstitial changes or interstitial edema. However, cannot exclude COVID-19 pneumonia. 2. Limited consolidation in both lower lobes posteriorly, atelectasis versus pneumonia. Plan Health Concerns: Nonsurgical right hip fracture in 84-year-old patient with several comorbidities including COVID-19 infection. Plan of Treatment: . To prison facility for ongoing rehab to complete recovery from right hip fracture. Also continue medication regimen for complete recovery from COVID-19 infection Stroke Is this a Stroke Patient?: No Acute Heart Failure Is this a Heart Failure Patient?: No
[2020-05-12 12:46] VITALS: BP 109/49
== END 2020-05-12 13:32 | DRG 535 ==
LOC: ER 10:39 → EH 23:09 → 5 05-02 01:43 → 3N 05-03 18:11 → 4S 05-07 09:47
PROVIDERS: ADMIT Internal Medicine; ATTEND Hospitalist
PROC: XW13325 Transfusion of Convalescent Plasma (Nonautologous) into Peripheral Vein, Percutaneous Approach, New Technology Group 5 (ICD-10-PCS; principal; 2020-05-04)
DX: S32.591A Other specified fracture of right pubis, initial encounter for closed fracture (principal); U07.1 COVID-19; N17.9 Acute kidney failure, unspecified; I48.21 Permanent atrial fibrillation; E87.1 Hypo-osmolality and hyponatremia; W18.30XA Fall on same level, unspecified, initial encounter; N40.0 Benign prostatic hyperplasia without lower urinary tract symptoms; J44.9 Chronic obstructive pulmonary disease, unspecified; E78.5 Hyperlipidemia, unspecified; I10 Essential (primary) hypertension; R42 Dizziness and giddiness; E66.9 Obesity, unspecified; Z79.01 Long term (current) use of anticoagulants; Z79.82 Long term (current) use of aspirin; Z79.899 Other long term (current) drug therapy; Z87.891 Personal history of nicotine dependence; Z68.23 Body mass index [BMI] 23.0-23.9, adult
CPT/HCPCS: 0202U; 36415; 36430; 70450; 71045; 71275; 72110; 73522; 74177; 80053; 80202; 81001; 82565; 82728; 82962; 83615; 83735; 84100; 84439; 84443; 85025; 85379; 85610; 86140; 86900; 86901; 87086; 87088; 93005; 93010; 94640; 99285; J1100; J1940; J2543; J2920; J3370; J3490; J7050; J7060; J7120; J7512